=== PATIENT | male | born 1970 | race Caucasian/White ===

== ENCOUNTER 2017-11-03 16:26 | Inpatient (IN) ==
[2017-11-03] MEDS ORDERED: 0.9 % Sodium Chloride 1,000 ML IVC ONE (17:28)
[2017-11-03] MEDS ORDERED: Isovue-370 500 ML INFUS..BTL IV ONE (17:39)
--- NOTE | 2017-11-03 17:42 | Emergency Department Note ---
Disposition Clinical Impression: Foot ulcer due to secondary DM Disposition: Still a Patient Referrals: Fausto Tomlinson, [facility] [Primary Care Provider] - [facility] [Other] Wound/Laceration HPI - General Chief Complaint: ED Wound/Laceration Stated Complaint: "R foot cut possibly infected" Time Seen by Provider: 11/03/17 16:45 Source: patient Mode of arrival: ambulatory Limitations: no limitations Vital Signs Reviewed: Yes - Related Data Allergies Allergy/AdvReac Type Severity Reaction Status Date / Time No Known Allergies Allergy Verified 11/03/17 16:42 Review of Systems: Mr. Cedeno is a 46 yo poorly controled Diabetic male that presents after having cut the dorsum of his foot 10 days ago on a unknown source with poor care of the cut since that time. He now presents with difficulty walking and a erythemitous foot. Additionally, he admits to some calf and thigh tenderness. Constitutional: Denies: fever, weakness Cardiovascular: Denies: chest pain, palpitations, syncope Respiratory: Denies: cough, dyspnea Gastrointestinal: Denies: abdominal pain, nausea, vomiting Genitourinary: Denies: dysuria, frequency, hematuria Musculoskeletal: Reports: as per HPI Neurological: Denies: headache, weakness, numbness Past Medical History - Past Medical History Medical history: Reports: diabetes, hyperlipidemia, hypertension Psychiatric history: Reports: no psych history - Social History Smoking Status: Never smoker Smokeless Tobacco Status: No Alcohol use: Reports: rarely Drug use: Reports: none Physical Exam - General Limitations: no limitations General appearance: alert, in no apparent distress Course Vital Signs Temperature 98.6 F 11/03/17 16:39 Pulse Rate 104 11/03/17 16:39 Respiratory Rate 18 11/03/17 16:39 Blood Pressure 158/99 11/03/17 16:39 O2 Sat by Pulse Oximetry 96 11/03/17 16:39 Temperature 98.6 F 11/03/17 16:58 Pulse Rate 99 11/03/17 16:58 Respiratory Rate 18 11/03/17 16:58 Blood Pressure 146/94 11/03/17 16:58 O2 Sat by Pulse Oximetry 98 11/03/17 16:58 Oxygen Delivery Oxygen Delivery Room Air
--- NOTE | 2017-11-03 17:47 | Emergency Department Note ---
Disposition Clinical Impression: Foot ulcer due to secondary DM Cellulitis Qualifiers: Site of cellulitis: extremity Site of cellulitis of extremity: lower extremity Laterality: right Qualified Code(s): L03.115 - Cellulitis of right lower limb Disposition: Admitted As Inpatient Condition: Good Referrals: [facility] [Other] Fausto Tomlinson CNP [Primary Care Provider] - Forms: ED Satisfaction Letter Wound/Laceration HPI - General Chief Complaint: ED Wound/Laceration Stated Complaint: "R foot cut possibly infected" Time Seen by Provider: 11/03/17 16:45 Source: patient Mode of arrival: private vehicle Limitations: no limitations Nursing Notes Reviewed: Yes Vital Signs Reviewed: Yes - History of Present Illness HPI Narrative: I have re-performed and reviewed the history documented by the medical student, and I confirm its accuracy except as noted below 46-year-old male with diabetes presenting with 10 days of a right foot ulceration. Worsening over the last 36 hours. Increasing redness to the foot. Denies any fevers nausea vomiting diarrhea chills. No prior history of diabetic foot ulcerations. Has had some drainage from the site. No history of DVT. No other complaints. Onset (ago): day(s) Extremity Location: Right: foot Mechanism: other Pain Severity: mild - Related Data Allergies Allergy/AdvReac Type Severity Reaction Status Date / Time No Known Allergies Allergy Verified 11/03/17 16:42 All systems ED: reviewed and negative except as stated. Constitutional: Denies: fever, chills, weakness Gastrointestinal: Denies: nausea, vomiting Integumentary: Reports: abrasion Past Medical History - Past Medical History Attestation: Yes The following information was validated with the patient. Source: patient Medical history: Reports: diabetes, hyperlipidemia, hypertension Psychiatric history: Reports: no psych history - Social History Smoking Status: Never smoker Smokeless Tobacco Status: No Alcohol use: Reports: rarely Drug use: Reports: none Physical Exam - General Limitations: no limitations General appearance: alert, in no apparent distress - Head Head exam: atraumatic, normocephalic - Eye Eye exam: Present: normal appearance - ENT ENT exam: normal exam - Neck Neck exam: Present: normal inspection - Chest Chest inspection: Present: normal inspection, symmetric chest wall rise - Respiratory Respiratory exam: Present: normal lung sounds bilaterally - Cardiovascular Cardiovascular exam: Present: normal rhythm, tachycardia, normal heart sounds - Abdominal Exam Abdominal exam: Present: soft, Non-Tender. Absent: tenderness, distention, rigidity - Extremities Exam Extremities exam: Present: normal inspection, full ROM - Expanded Upper Extremity Exam Shoulder exam: Present: normal inspection, full ROM Arm exam: Present: normal inspection, full ROM Elbow exam: Present: normal inspection, full ROM Forearm/Wrist exam: Present: normal inspection, full ROM Hand exam: Present: normal inspection, full ROM - Expanded Lower Extremity Exam Hip/Pelvis exam: Present: normal inspection, full ROM Upper leg exam: Present: normal inspection, full ROM Knee exam: Present: normal inspection, full ROM Lower leg exam: Present: normal inspection, full ROM, tenderness (Right calf mild tenderness. No crepitus, swelling, erythema up the leg.) Ankle exam: Present: normal inspection, full ROM Foot/toe exam: Present: normal inspection, full ROM, tenderness ( Tenderness to the dorsum and medial aspect of the right foot. There is overlying erythema of the plantar surface as well as the dorsum. He has a roughly 2 x 4 cm area of ulceration at the base of the fourth toe approximately 1 cm deep and 1 cm tunneling in all directions. ) - Skin Skin exam: Present: warm, dry Course Course Narrative: Patient seen and examined. Vital signs reviewed. Plan for CT imaging of the foot, labs, IV fluids. Likely admission for IV antibiotics. - Reevaluation(s) Reevaluation #1: Discussed findings with the patient. Agreeable with plan. - Consultations Consultation #1: I spoke with the on-call dental assistant Dr. Hoover. Discussed the patient's history , exam as well as labs and interventions. Cultures were obtained. Patient to start on vancomycin. Plan to see the patient in the morning. Request a 3 view x-ray of the foot. Vital Signs Temperature 98.6 F 11/03/17 16:39 Pulse Rate 104 11/03/17 16:39 Respiratory Rate 18 11/03/17 16:39 Blood Pressure 158/99 11/03/17 16:39 O2 Sat by Pulse Oximetry 96 11/03/17 16:39 Temperature 98.6 F 11/03/17 16:58 Pulse Rate 102 11/03/17 18:00 Respiratory Rate 18 11/03/17 18:00 Blood Pressure 127/83 11/03/17 18:00 O2 Sat by Pulse Oximetry 96 11/03/17 18:00 Oxygen Delivery Oxygen Delivery Room Air Wound/Laceration - [facility] Narrative Medical decision making narrative: 46-year-old male presenting with an ulceration to his foot for 10 days. Cellulitis of the right foot as well. Hemodynamically stable. Leukocytosis of 16. Patient was discussed with podiatry. CT imaging with ulceration and soft tissue swelling. Vancomycin for antibiotic choice. Admitted to the hospitalist service. - Lab Data Lab results reviewed: Yes I reviewed the patient's lab results. Result diagrams: 11/03/17 17:53 11/03/17 17:39 Lab Results 11/03/17 11/03/17 11/03/17 Range/Units 17:39 17:53 17:53 WBC 15.8 H (4.3-11.1) K/mcL RBC 5.40 (4.19-5.50) M/mcL Hgb 16.2 (12.9-16.9) g/dL Hct 46.5 (37.5-50.1) % MCV 86.1 (83.0-100.0) fL MCH 30.0 (28.0-33.3) pg MCHC 34.8 (31.6-35.5) g/dL RDW 13.0 (11.5-14.5) % Plt Count 217 (140-400) K/mcL MPV 8.3 L (9.4-12.4) fL Immature Gran % 0.6 (0-4) % Seg Neutrophils % 79.5 % Lymphocytes % 9.2 % Monocytes % 10.1 % Eosinophils % 0.3 % Basophils % 0.3 % Neutrophils # 12.6 H (1.6-8.9) K/mcL Lymphocytes # 1.5 (0.6-4.6) K/mcL Monocytes # 1.6 H (0.0-1.3) K/mcL Eosinophils # 0.0 (0.0-0.6) K/mcL Basophils # 0.0 (0.0-0.2) K/mcL ESR 46 H (0-10) mm/hr Sodium 133 L (136-145) mEq/L Potassium 4.5 (3.5-5.1) mEq/L Chloride 97 L (98-107) mEq/L Carbon Dioxide 27 (23-29) mEq/L BUN 18 (6-20) mg/dL Creatinine 0.97 (0.70-1.30) mg/dL Est GFR ( Amer) > 60 (> 60) Est GFR (Non-Af Amer) > 60 (> 60) BUN/Creatinine Ratio 19 (6-26) Glucose 216 H (70-105) mg/dL Calculated Osmolality 284 (280-300) Lactic Acid (0.5-2.2) mmol/L Calcium 9.4 (8.6-10.3) mg/dL C-Reactive Protein (Less than 10) mg/L 11/03/17 11/03/17 Range/Units 17:53 17:53 WBC (4.3-11.1) K/mcL RBC (4.19-5.50) M/mcL Hgb (12.9-16.9) g/dL Hct (37.5-50.1) % MCV (83.0-100.0) fL MCH (28.0-33.3) pg MCHC (31.6-35.5) g/dL RDW (11.5-14.5) % Plt Count (140-400) K/mcL MPV (9.4-12.4) fL Immature Gran % (0-4) % Seg Neutrophils % % Lymphocytes % % Monocytes % % Eosinophils % % Basophils % % Neutrophils # (1.6-8.9) K/mcL Lymphocytes # (0.6-4.6) K/mcL Monocytes # (0.0-1.3) K/mcL Eosinophils # (0.0-0.6) K/mcL Basophils # (0.0-0.2) K/mcL ESR (0-10) mm/hr Sodium (136-145) mEq/L Potassium (3.5-5.1) mEq/L Chloride (98-107) mEq/L Carbon Dioxide (23-29) mEq/L BUN (6-20) mg/dL Creatinine (0.70-1.30) mg/dL Est GFR ( Amer) (> 60) Est GFR (Non-Af Amer) (> 60) BUN/Creatinine Ratio (6-26) Glucose (70-105) mg/dL Calculated Osmolality (280-300) Lactic Acid 1.2 (0.5-2.2) mmol/L Calcium (8.6-10.3) mg/dL C-Reactive Protein 57 H (Less than 10) mg/L - Radiology Data Radiology results reviewed: Yes I reviewed the patient's radiology results. Lower Extremity CT 11/03/17 17:39 IMPRESSION: 1. Ulceration along the plantar foot with adjacent soft tissue edema and hypoattenuation of the tissue which may reflect phlegmon or devitalized tissue. No well-circumscribed rim enhancing fluid collection identified. 2. No CT evidence for osteomyelitis. 3. Diffuse soft tissue edema. Correlate clinically for cellulitis. RECOMMENDATIONS: MRI of the forefoot could be obtained for further evaluation as clinically indicated. D/ / Pineda Hinson MD / Pineda Hinson MD Interpreting Provider: Pineda Hinson MD Kirill - Kirill Situation: Demographics, MOA Background: Presenting Complaint, Relevant PMH, Meds, & Allergies Assessment: Vital Signs, Course and respsone to treatment, Exam Concerns, Patient/Family Expectation, Pertinant Lab Results Recommendation: Barrier(s) to disposition, Recommendation based on pending studies, treatments, or consults Kirill Report Given to: Dr. Easton Roy [facility] Time: 20:32
[2017-11-03 18:13] LABS: Basophils % 0.3 %; Eosinophils % 0.3 %; Hematocrit 46.5 % (37.5-50.1); Hemoglobin 16.2 g/dL (12.9-16.9); Immature Granulocytes % 0.6 % (0-4); Lymphocytes # 1.5 K/mcL (0.6-4.6); Lymphocytes % 9.2 %; Mean Corpuscular HGB Conc 34.8 g/dL (31.6-35.5); Mean Corpuscular Volume 86.1 fL (83.0-100.0); Mean Platelet Volume 8.3 fL (9.4-12.4); Monocytes # 1.6 K/mcL (0.0-1.3); Monocytes % 10.1 %; Neutrophils # 12.6 K/mcL (1.6-8.9); Platelet Count 217 K/mcL (140-400); Segmented Neutrophils % 79.5 %
--- NOTE | 2017-11-03 18:34 | Emergency Department Note ---
Disposition Clinical Impression: Foot ulcer due to secondary DM Disposition: Admitted As Inpatient Referrals: [facility] [Other] Fausto Tomlinson, [facility] [Primary Care Provider] - Forms: ED Satisfaction Letter General Adult HPI - General Chief complaint: ED Wound/Laceration Stated complaint: "R foot cut possibly infected" Time Seen by Provider: 11/03/17 16:45 Source: patient Mode of arrival: private vehicle Limitations: no limitations - History of Present Illness Pain Scale: 4 - Related Data Allergies Allergy/AdvReac Type Severity Reaction Status Date / Time No Known Allergies Allergy Verified 11/03/17 16:42 Constitutional: Denies: fever, chills, weakness Cardiovascular: Denies: chest pain, palpitations, syncope Respiratory: Denies: cough, dyspnea Gastrointestinal: Denies: nausea, vomiting Genitourinary: Denies: dysuria, frequency, hematuria Musculoskeletal: Reports: as per HPI Integumentary: Reports: abrasion Neurological: Denies: headache, weakness, numbness Past Medical History - Past Medical History Medical history: Reports: diabetes, hyperlipidemia, hypertension Psychiatric history: Reports: no psych history - Social History Smoking Status: Never smoker Smokeless Tobacco Status: No Alcohol use: Reports: rarely Drug use: Reports: none Physical Exam - General Limitations: no limitations General appearance: alert, in no apparent distress Course Vital Signs Temperature 98.6 F 11/03/17 16:39 Pulse Rate 104 11/03/17 16:39 Respiratory Rate 18 11/03/17 16:39 Blood Pressure 158/99 11/03/17 16:39 O2 Sat by Pulse Oximetry 96 11/03/17 16:39 Temperature 98.6 F 11/03/17 16:58 Pulse Rate 102 11/03/17 18:00 Respiratory Rate 18 11/03/17 18:00 Blood Pressure 127/83 11/03/17 18:00 O2 Sat by Pulse Oximetry 96 11/03/17 18:00 Oxygen Delivery Oxygen Delivery Room Air Medical Decision Making - Lab Data Result diagrams: 11/03/17 17:53 Lab Results 11/03/17 11/03/17 11/03/17 Range/Units 17:53 17:53 17:53 WBC 15.8 H (4.3-11.1) K/mcL RBC 5.40 (4.19-5.50) M/mcL Hgb 16.2 (12.9-16.9) g/dL Hct 46.5 (37.5-50.1) % MCV 86.1 (83.0-100.0) fL MCH 30.0 (28.0-33.3) pg MCHC 34.8 (31.6-35.5) g/dL RDW 13.0 (11.5-14.5) % Plt Count 217 (140-400) K/mcL MPV 8.3 L (9.4-12.4) fL Immature Gran % 0.6 (0-4) % Seg Neutrophils % 79.5 % Lymphocytes % 9.2 % Monocytes % 10.1 % Eosinophils % 0.3 % Basophils % 0.3 % Neutrophils # 12.6 H (1.6-8.9) K/mcL Lymphocytes # 1.5 (0.6-4.6) K/mcL Monocytes # 1.6 H (0.0-1.3) K/mcL Eosinophils # 0.0 (0.0-0.6) K/mcL Basophils # 0.0 (0.0-0.2) K/mcL ESR 46 H (0-10) mm/hr Lactic Acid 1.2 (0.5-2.2) mmol/L Attestation Statement - Attestation Attestation: I examined this patient and my medical decision-making was reviewed with the Resident Physician. I agree with the documented findings, disposition and treatment plan as described except to the extent set forth below. 46 year old male presents to the ED with complaints of right foot pain and is a controlled diabetic and states that he has been having decrasd feeling ot his right foot and played basketball yesterday and noticed increased swelling and tenderenss with erythematous changes to the bottom of his right foot and into the top part of his foot. He is also tachycardic but afebrile. Concerns for osteomyeltisi or infected diabetic ulcer. WE will start IVF, and obtain CT LLE and then admit to mdeicine
[2017-11-03 18:37] LABS: BUN/Creatinine Ratio 19 (6-26); Blood Urea Nitrogen 18 mg/dL (6-20); Calcium 9.4 mg/dL (8.6-10.3); Carbon Dioxide 27 mEq/L (23-29); Chloride 97 mEq/L (98-107); Glucose 216 mg/dL (70-105); Osmolality,Calculated 284 (280-300); Potassium 4.5 mEq/L (3.5-5.1); Sodium 133 mEq/L (136-145); eGFR For Non-African Americans > 60 (> 60)
[2017-11-03] MEDS ORDERED: *HR* OxyCODONE/APAP 5/325 TABLET PO ONE (20:31)
[2017-11-03] MEDS ORDERED: Dextrose Gel 15 GM/37.5 ML TUBE PO PRN ×2 (20:38)
--- NOTE | 2017-11-03 20:51 | Internal Med History&Physical ---
Date of Encounter: 11/03/17 Time of Encounter: 20:48 Internal Medicine - H&P: HPI Chief complaint: foot wound Admitted From: Home Plans for Post Hospital Care: Home History of present illness: Mr. Cedeno is a 46 year old obese man with diabetes complicated by neuropathy and hypertension who presents today complaining of a right foot plantar ulcer with pedal swelling, erythema ad pain. As per patient and his , an ulcer was noted on the plantar surface below digits 4 and 5 about 10 days ago after seeing blood on the floor however he did not feel any puncture wounds and was unaware of its development. The lesion continued to produce discharge and 3 days ago after playing some basketball, the foot started swelling and become more tender. Today he woke up and noticed the swelling had progressed up into his leg, feeling a tightness and numbness. He has not been febrile or had chills. On arrival here he was seen to have a WBC of 15. Vitals within normal limits. CT scan was done and confirmed the ulceration along the plantar foot with adjacent soft tissue edema and hypoattenuation of the tissue which may reflect phlegmon or devitalized tissue. No well-circumscribed rim enhancing fluid collection identified. No CT evidence for osteomyelitis. Diffuse soft tissue edema. Podiatry was consulted and will be seen. Blood cultures and culture swab from the drainage were obtained and was given 1 dose of vancomycin. On my assessment the patient was laying comfortably in bed in no acute distress. Info provided by the is that he was diagnosed with diabetes over 10 years ago, is on metformin, empagliflozin and dulaglutide. He states that he was not seen a physician in 2 years. He does state he has minimal sensation in the plantar aspect of his feet and frequently walks around barefoot. 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, has a pankaj) - Social History Smoking Status: Never smoker Smokeless Tobacco Status: No Alcohol use: rarely Drug use: none Internal Medicine - H&P: Meds Amitriptyline [Elavil] 25 mg PO DAILY 11/03/17 [History] Dulaglutide [Trulicity] 0.75 mg SQ QWEEK 11/03/17 [History] Empagliflozin [Jardiance] 10 mg PO DAILY 11/03/17 [History] Lisinopril [Zestril] 10 mg PO DAILY 11/03/17 [History] Simvastatin [Zocor] 10 mg PO DAILY 11/03/17 [History] metFORMIN [Glucophage] 1,000 mg PO BIDWM 11/03/17 [History] 3 Allergy/AdvReac Type Severity Reaction Status Date / Time No Known Allergies Allergy Verified 11/03/17 16:42 All Systems PM: A 10-system review of systems was performed and is negative for pertinent findings except as documented above in the HPI. - Constitutional Vitals: Temp Pulse Resp BP Pulse Ox 98.6 F 93 18 152/90 96 11/03/17 16:58 11/03/17 20:39 11/03/17 20:39 11/03/17 20:39 11/03/17 20:39 Exam: Vitals: Reviewed General: Obese white man, NAD Skin: warm and supple HEENT: Moist mucous membranes. No conjunctivae pallor. Neck: No lymphadenopathy. No JVD. No carotid bruits. No palpable thyroid. Chest: Normal thoracic expansion. Normal breath sounds. Clear to auscultation. Heart: Normal S1 & S2; rhythmic. No rubs or murmurs. Abdomen: Non-distended, soft and non-tender to palpation. Extremities: Right calf circumferentially larger than the left with some pain on deep palpation in the inferior third. Right foot notably swollen and erythematous. Plantar surface depictive of a 2cm wide ulceration with hard hyperkeratotic borders with 1cm tunneling and draining yellowish fluid. No sensation surrounding. Neurological: Awake, alert and oriented to person, place and time. No focal deficits. Psych: Affect appropriate. Internal Med - H&P Results - Labs CBC & Chem 7: 11/03/17 17:53 11/03/17 17:39 - Assessment and plan (1) Diabetic foot ulcer associated with diabetes mellitus due to underlying condition Current Visit: Yes Status: Acute Assessment and plan: Associated to neuropathic state. There is also evidence of onychomycosis with interphalangeal skin breakdown which are associated factors that act as ports of entry. -Given a likely polymicrobial etiology, will add on piptazo to vancomycin empirically for now pending culture results. -Podiatry consult requested. -Will need close outpatient monitoring and wound care follow up. Qualifiers: Diabetic foot ulcer location: midfoot Laterality: right Non-pressure ulcer stage: with other severity Qualified Code(s): E08.621 - Diabetes mellitus due to underlying condition with foot ulcer; L97.418 - Non-pressure chronic ulcer of right heel and midfoot with other specified severity (2) Sepsis affecting skin Current Visit: Yes Status: Acute Assessment and plan: Evidenced by leukocytosis and tachycardia. Found to have skin/soft tissue infection. Lactate wnl. Will place on IVF, monitor wbc and temperature. Abx as above. (3) Diabetes mellitus Current Visit: Yes Status: Acute Assessment and plan: Will place on insulin sliding scale for now. Check state on control with A1C Diabetic education. Check lipid panel. Qualifiers: Diabetes mellitus type: type 2 Diabetes mellitus exterminator insulin use: without usp use Diabetes mellitus complication status: with skin complications Diabetes mellitus complication detail: with foot ulcer Qualified Code(s): E11.621 - Type 2 diabetes mellitus with foot ulcer; L97.509 - Non-pressure chronic ulcer of other part of unspecified foot with unspecified severity (4) Hypertension Current Visit: Yes Status: Chronic Assessment and plan: Uncontrolled. Will place on ACEI and titrate as needed. Qualifiers: Hypertension type: essential hypertension Qualified Code(s): I10 - Essential (primary) hypertension (5) Obesity (BMI 30-39.9) Current Visit: Yes Status: Chronic Assessment and plan: Will benefit from nutrition consultation, diet and exercise advised. (6) DVT prophylaxis Current Visit: Yes Status: Acute Assessment and plan: SubQ heparin ordered. - Time Spent With Patient Total time spent is greater than 50% in coordination of care (as documented) at patient's floor/unit and/or counseling patient: Greater than 35 minutes
[2017-11-03] MEDS ORDERED: Ibuprofen 600 MG TABLET PO PRN (20:58)
[2017-11-03] MEDS: *HR* Heparin 5,000 UNIT/ML VIAL SQ SCH (21:58)
[2017-11-03] MEDS: Insulin LISPRO 300 UNITS/3 ML VIAL SQ SCH (21:59)
[2017-11-03] MEDS: 0.9 % Sodium Chloride 1,000 ML IVC SCH (21:59)
[2017-11-04] MEDS: Piperacillin/Tazobactam 3.375 GM in 0.9 % Sodium Chloride Mini Bag 100 ML IVPB SCH ×3 (00:19→16:22)
[2017-11-04 04:22] LABS: Basophils % 0.3 %; Eosinophils # 0.1 K/mcL (0.0-0.6); Hematocrit 40.8 % (37.5-50.1); Immature Granulocytes % 0.5 % (0-4); Lymphocytes % 17.3 %; Mean Corpuscular HGB Conc 34.1 g/dL (31.6-35.5); Mean Corpuscular Hemoglobin 29.6 pg (28.0-33.3); Mean Corpuscular Volume 86.8 fL (83.0-100.0); Mean Platelet Volume 8.3 fL (9.4-12.4); Monocytes # 1.6 K/mcL (0.0-1.3); Monocytes % 13.6 %; Neutrophils # 7.7 K/mcL (1.6-8.9); Platelet Count 177 K/mcL (140-400); Red Cell Distribution Width 12.9 % (11.5-14.5); Segmented Neutrophils % 67.3 %
[2017-11-04 04:27] LABS: Hemoglobin 13.9 g/dL (12.9-16.9)
[2017-11-04 04:41] LABS: Alanine Aminotransferase 13 Units/L (7-52); Albumin 3.5 g/dL (3.5-5.7); Albumin/Globulin Ratio 1.2 (1.1-2.2); Alkaline Phosphatase 75 Units/L (34-104); Aspartate Amino Transferase 10 Units/L (13-39); BUN/Creatinine Ratio 18 (6-26); Blood Urea Nitrogen 16 mg/dL (6-20); Calcium 8.1 mg/dL (8.6-10.3); Carbon Dioxide 27 mEq/L (23-29); Chloride 101 mEq/L (98-107); Chol/HDL Ratio 4.3 (0-4.9); Cholesterol 159 mg/dL (< 200); Glucose 202 mg/dL (70-105); HDL Cholesterol 37 mg/dL (40-59); LDL Cholesterol,Calculated 98 mg/dL (0-99); Osmolality,Calculated 285 (280-300); Sodium 134 mEq/L (136-145); Total Protein 6.5 g/dL (6.4-8.9); Triglycerides 121 mg/dL (< 150); eGFR For Non-African Americans > 60 (> 60)
[2017-11-04] MEDS: *HR* Heparin 5,000 UNIT/ML VIAL SQ SCH ×3 (06:23→21:25)
[2017-11-04] MEDS: 0.9 % Sodium Chloride 1,000 ML IVC SCH (06:23)
[2017-11-04] MEDS: Lisinopril 20 MG TABLET PO SCH (08:40)
[2017-11-04] MEDS: Insulin LISPRO 300 UNITS/3 ML VIAL SQ SCH ×4 (08:41→21:22)
[2017-11-04] MEDS ORDERED: Vancomycin 1,750 MG in 0.9 % Sodium Chloride 250 ML IVPB SCH (09:00)
[2017-11-04 09:48] LABS: Estimated Average Glucose 209 mg/dl; Hemoglobin A1C 8.9 %
--- NOTE | 2017-11-04 11:42 | Podiatry Consult Note ---
Date of Encounter: 11/04/17 Time of Encounter: 11:20 Assessment and Plan (1) Foot ulcer due to secondary DM Current visit: Yes Status: Acute encouraged glycemic control. discussed importance of controlling blood sugar for wound healing. (2) Cellulitis Current visit: Yes Status: Acute ESR and CRP reviewed. ESR in 50s. patient has dorsal foot erythema consistent with cellulitis. low likelihood of osteomyelitis and wound does not probe to bone. c/w IV antibiotics. trend wbc count. did respond to IV abx overnight wbc 15--->11 Qualifiers: Site of cellulitis: extremity Site of cellulitis of extremity: lower extremity Laterality: right Qualified Code(s): L03.115 - Cellulitis of right lower limb Code(s): L03.90 - Cellulitis, unspecified (3) Chronic ulcer of right foot with fat layer exposed Current visit: Yes Status: Acute I had a thorough review with the patient regarding his infection/condition, my findings, and recommendations for treatment. We discussed his x-ray and CT scan. excisional debridement of right foot wound performed into subctuaneous tissue removing fibrotic tissue and devitalized tissue from the wound wound culture obtained and sent obtain a current A1c mesalt ribbon packing twice daily, cleanse skin with hibiclens prior to application of mesalt, apply sterile dressing 4x4 gauze, kerlix and the MEG wrap twice daily. will require diabetic boot for off-loading, will get for patient tomorrow. History of Present Illness HPI: Mr. Cedeno is a 46 year old diabetic male with neuropathy comes in with right foot wound he says has been present for 11-12 days. He did notice drainage come out of it. He denies stepping on anything but says he would not be able to feel it if he did. He says I did this to myself, I stayed active despite knowing this was there and played basketball on Saturday. He says the redness on the foot worsened as did the swelling and pain which brought him to the hospital. He says he works at the [employer] in [place] and is a very active alberto. He says his A1c was previously in the 7s but he says he knows it is up because he has not been as controlled recently. Podiatry consulted for evaluation. 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, has a pankaj) - Social History Smoking Status: Never smoker Smokeless Tobacco Status: No Alcohol use: rarely Drug use: none Medications and Allergies Amitriptyline [Elavil] 25 mg PO DAILY 11/03/17 [History] Dulaglutide [Trulicity] 0.75 mg SQ QWEEK 11/03/17 [History] Empagliflozin [Jardiance] 10 mg PO DAILY 11/03/17 [History] Lisinopril [Zestril] 10 mg PO DAILY 11/03/17 [History] Simvastatin [Zocor] 10 mg PO DAILY 11/03/17 [History] metFORMIN [Glucophage] 1,000 mg PO BIDWM 11/03/17 [History] 3 Allergy/AdvReac Type Severity Reaction Status Date / Time No Known Allergies Allergy Verified 11/03/17 16:42 All Systems Reviewed: The remainder of the systems were reviewed and are negative - Constitutional Constitutional: no fever(s) - Cardiovascular Cardiovascular: no chest pain, no dyspnea - Respiratory Respiratory: no cough, no dyspnea - Musculoskeletal Musculoskeletal: numbness Physical Exam - Constitutional Vitals: Temp Pulse Resp BP Pulse Ox 98.6 F 90 16 163/106 93 11/04/17 10:58 11/04/17 10:58 11/04/17 10:58 11/04/17 10:58 11/04/17 10:58 General appearance: cooperative, no acute distress - Cardiovascular Cardiovascular exam: Present: +S1, +S2 - Extremities Exam Extremities exam: Absent: calf tenderness - Ankle & Foot Exam: Well-developed and nourished male in no acute distress Capillary refill time less than 3 seconds 5 digits right foot. Right foot is warm to touch. There is moderate edema of the right foot in the forefoot. Plantar ulceration approximately 2 cm x 1.5 cm and probes approximately 1 cm. It does not probe to bone. There is no purulence expressed. There is serosanguineous drainage with devitalized tissue present at the base of the wound. Cellulitis dorsal aspect of foot. Absent protective sensation. There is pain with palpation of the ulceration site. No pain with MTP midfoot ST JR ankle range of motion. Results - Labs Result Diagrams: 11/04/17 04:09 11/04/17 04:09 Labs: Abnormal lab results WBC 11.5 K/mcL (4.3-11.1) H 11/04/17 04:09 MPV 8.3 fL (9.4-12.4) L 11/04/17 04:09 Monocytes # 1.6 K/mcL (0.0-1.3) H 11/04/17 04:09 ESR 46 mm/hr (0-10) H 11/03/17 17:53 Sodium 134 mEq/L (136-145) L 11/04/17 04:09 Glucose 202 mg/dL (70-105) H 11/04/17 04:09 POC Glucose 263 mg/dL (70-99) H 11/03/17 21:32 Hemoglobin A1c 8.9 % (-5.6) H 11/04/17 04:09 Calcium 8.1 mg/dL (8.6-10.3) L 11/04/17 04:09 AST 10 Units/L (13-39) L 11/04/17 04:09 C-Reactive Protein 57 mg/L (Less than 10) H 11/03/17 17:53 HDL Cholesterol 37 mg/dL (40-59) L 11/04/17 04:09 H & H 11/04/17 Range/Units 04:09 Hgb 13.9 D (12.9-16.9) g/dL Hct 40.8 (37.5-50.1) % All other labs normal. - Diagnostic results Ankle/Foot CT: other (no abscess, no osteomyelitis) Consult Discharge Plan - Plan Referrals: Fausto Tomlinson CNP [Primary Care Provider] - [facility] [Other]
--- NOTE | 2017-11-04 12:30 | Internal Med Progress Note ---
Hospitalist Progress Note - Encounter Date of Encounter: 11/04/17 Time of Encounter: 12:28 - Subjective Interval History: Patient was seen and examined at bedside Denies any fever chills nausea vomiting diarrhea No overnight events Tolerated by mouth diet, pain is controlled - Exam Vitals: Temp Pulse Resp BP Pulse Ox 98.6 F 90 16 170/100 93 11/04/17 10:58 11/04/17 10:58 11/04/17 10:58 11/04/17 12:25 11/04/17 10:58 Exam: General: Patient is alert, oriented, no acute distress, obese Head: atraumatic, normocephalic, Eye: normal appearance, PERRL, no scleral icterus, no conjunctival injection ENT: mucous membranes moist, normal external ear exam Neck: normal inspection, trachea midline, full ROM, no carotid bruits Chest: normal inspection, symmetric chest rise Respiratory: Good respiratory effort. Bilateral breath sounds are clear without wheezing, crackles, or rhonchi. Cardiovascular: Regular rate and rhythm. s1 and s2 No clicks, rubs, gallops, or murmors. Abdomen: Bowel sounds present normoactive x-4 quadrants. Abdomen is soft, nondistended. no Epigastric tenderness. No guarding or rebound. No organomegaly noted, obese musculoskeletal: Spontaneously moving all extremities. no edema, no calf tenderness DP pulses intact Skin: warm, dry, intact. Has right dorsal foot erythema and swelling, plantar ulcer of the right foot, the ulcer is only 1 x 1 cm, subcutaneous tissues visualized no bone seen surrounding tissue is fibrotic. No pus or discharge Neuro: Alert and oriented x4. Sensation light touch intact. Cranial nerves 2- 12 is intact. Not aphasic, gait is steady, rapid hand movements intact, finger- to-nose intact, Psych: Patient's affect is normal - Assessment and Plan (1) Diabetic foot ulcer associated with diabetes mellitus due to underlying condition Current Visit: Yes Status: Acute Assessment and Plan: Associated to neuropathic state. ESR 46 CRP 57 There is also evidence of onychomycosis with interphalangeal skin breakdown which are associated factors that act as ports of entry. On IV Zosyn and vancomycin since 11/03 Podiatry consulted s/p debridement 11/04 wound cx sent by podiatry 11/04 bcx sent 11/03 mesalt ribbon packing twice daily, cleanse skin with hibiclens prior to application of mesalt, apply sterile dressing 4x4 gauze, kerlix and the MEG wrap twice daily wound care consult (2) Sepsis affecting skin Current Visit: Yes Status: Acute Assessment and Plan: Evidenced by leukocytosis and tachycardia. secondary to above Lactate wnl. management as per above Now resolved (3) Diabetes mellitus Current Visit: Yes Status: Acute Assessment and Plan: Will place on insulin sliding scale for now. he was counseled on nutrition and importance of compliance to medications uncontrolled A1c 8.9 Diabetic education. (4) Hypertension Current Visit: Yes Status: Chronic Assessment and Plan: Uncontrolled. started on lisinopril 20 mg IVF discontinued will continue to follow BP and titrate medications (5) Obesity (BMI 30-39.9) Current Visit: Yes Status: Chronic Assessment and Plan: nutrition consultation diet and exercise advised. (6) DVT prophylaxis Current Visit: Yes Status: Acute Assessment and Plan: SubQ heparin - Time Spent with Patient Total time spent is greater than 50% in coordination of care (as documented) at patient's floor/unit and/or counseling patient: Internal Medicine: Result - Labs CBC & Chem 7: 11/04/17 04:09 11/04/17 04:09 Labs: Short CBC 11/04/17 Range/Units 04:09 WBC 11.5 H (4.3-11.1) K/mcL Hgb 13.9 D (12.9-16.9) g/dL Hct 40.8 (37.5-50.1) % Plt Count 177 (140-400) K/mcL Neutrophils # 7.7 (1.6-8.9) K/mcL BMP 11/04/17 04:09 Sodium 134 L Potassium 4.0 Chloride 101 Carbon Dioxide 27 BUN 16 Creatinine 0.91 Glucose 202 H Calcium 8.1 L Liver Function 11/04/17 Range/Units 04:09 Total Bilirubin 1.0 (0.3-1.0) mg/dL AST 10 L (13-39) Units/L ALT 13 (7-52) Units/L Alkaline Phosphatase 75 (34-104) Units/L Albumin 3.5 (3.5-5.7) g/dL Consult Discharge Plan - Plan Referrals: [facility] [Other] Fausto Tomlinson, FINANCIAL PLANNING ANALYST [Primary Care Provider] - (1) Diabetic foot ulcer associated with diabetes mellitus due to underlying condition Qualifiers: Diabetic foot ulcer location: midfoot Laterality: right Non-pressure ulcer stage: with other severity Qualified Code(s): E08.621 - Diabetes mellitus due to underlying condition with foot ulcer; L97.418 - Non-pressure chronic ulcer of right heel and midfoot with other specified severity (3) Diabetes mellitus Qualifiers: Diabetes mellitus type: type 2 Diabetes mellitus fpc insulin use: without metrologist use Diabetes mellitus complication status: with skin complications Diabetes mellitus complication detail: with foot ulcer Qualified Code(s): E11.621 - Type 2 diabetes mellitus with foot ulcer; L97.509 - Non-pressure chronic ulcer of other part of unspecified foot with unspecified severity (4) Hypertension Qualifiers: Hypertension type: essential hypertension Qualified Code(s): I10 - Essential (primary) hypertension
[2017-11-04] MEDS ORDERED: amLODIPine 5 MG TABLET PO ONE (13:59)
[2017-11-04] MEDS: traMADol 50 MG TABLET PO PRN (14:13)
[2017-11-04] MEDS ORDERED: D5% in Water 1,000 ML IVC PRN (14:38)
[2017-11-04] MEDS ORDERED: *HR* Dextrose 50 % in Water (Syg) 50 ML SYRINGE IVP PRN (14:38)
[2017-11-04] MEDS: Insulin DETEMIR 100 UNIT/ML X5UNITS SQ SCH (21:20)
[2017-11-04] MEDS: *HR* HYDROcodone/Acet 5/325 mg TABLET PO PRN (21:25)
[2017-11-05] MEDS: Piperacillin/Tazobactam 3.375 GM in 0.9 % Sodium Chloride Mini Bag 100 ML IVPB SCH ×4 (00:15→23:45)
[2017-11-05 06:13] LABS: Hematocrit 38.3 % (37.5-50.1); Hemoglobin 13.3 g/dL (12.9-16.9); Mean Corpuscular HGB Conc 34.7 g/dL (31.6-35.5); Mean Corpuscular Volume 86.3 fL (83.0-100.0); Mean Platelet Volume 8.4 fL (9.4-12.4); Platelet Count 181 K/mcL (140-400); Red Blood Count 4.44 M/mcL (4.19-5.50); Red Cell Distribution Width 12.7 % (11.5-14.5)
[2017-11-05 06:37] LABS: BUN/Creatinine Ratio 16 (6-26); Blood Urea Nitrogen 12 mg/dL (6-20); Calcium 7.9 mg/dL (8.6-10.3); Carbon Dioxide 24 mEq/L (23-29); Chloride 99 mEq/L (98-107); Glucose 175 mg/dL (70-105); Osmolality,Calculated 280 (280-300); Potassium 3.8 mEq/L (3.5-5.1); Sodium 133 mEq/L (136-145); eGFR For Non-African Americans > 60 (> 60)
[2017-11-05] MEDS: *HR* Heparin 5,000 UNIT/ML VIAL SQ SCH ×3 (07:58→20:57)
[2017-11-05] MEDS: Insulin LISPRO 300 UNITS/3 ML VIAL SQ SCH ×4 (08:45→20:55)
[2017-11-05] MEDS: Lisinopril 20 MG TABLET PO SCH (08:45)
[2017-11-05] MEDS: *HR* HYDROcodone/Acet 5/325 mg TABLET PO PRN ×3 (10:17→23:47)
--- NOTE | 2017-11-05 10:38 | Internal Med Progress Note ---
Hospitalist Progress Note - Encounter Date of Encounter: 11/05/17 Time of Encounter: 10:34 - Subjective Interval History: Patient was seen and examined at bedside Denies any fever chills nausea vomiting diarrhea No overnight events Tolerated by mouth diet, pain is controlled - Exam Vitals: Temp Pulse Resp BP Pulse Ox 99.2 F 88 15 144/90 94 11/05/17 10:28 11/05/17 10:28 11/05/17 10:28 11/05/17 10:28 11/05/17 10:28 Exam: General: Patient is alert, oriented, no acute distress, obese Head: atraumatic, normocephalic, Eye: normal appearance, PERRL, no scleral icterus, no conjunctival injection ENT: mucous membranes moist, normal external ear exam Neck: normal inspection, trachea midline, full ROM, no carotid bruits Chest: normal inspection, symmetric chest rise Respiratory: Good respiratory effort. Bilateral breath sounds are clear without wheezing, crackles, or rhonchi. Cardiovascular: Regular rate and rhythm. s1 and s2 No clicks, rubs, gallops, or murmors. Abdomen: Bowel sounds present normoactive x-4 quadrants. Abdomen is soft, nondistended. no Epigastric tenderness. No guarding or rebound. No organomegaly noted, obese musculoskeletal: Spontaneously moving all extremities. no edema, no calf tenderness DP pulses intact Skin: warm, dry, intact. swelling of the right LE has improved, RLE wrapped in dressing whicis clean Neuro: Alert and oriented x4. Sensation light touch intact. Cranial nerves 2- 12 is intact. Not aphasic, gait is steady, rapid hand movements intact, finger- to-nose intact, Psych: Patient's affect is normal - Assessment and Plan (1) Diabetic foot ulcer associated with diabetes mellitus due to underlying condition Current Visit: Yes Status: Acute Assessment and Plan: Associated to neuropathic state. ESR 46 CRP 57 There is also evidence of onychomycosis with interphalangeal skin breakdown which are associated factors that act as ports of entry. On IV Zosyn and vancomycin since 11/03- vancomycin discontinued as wound cx are growing gram negatives Podiatry consulted s/p debridement 11/04 wound cx sent by podiatry 11/04 - growing gram negative rods x2 -will follow sensitivities bcx sent 11/03- prelim negative mesalt ribbon packing twice daily, cleanse skin with hibiclens prior to application of mesalt, apply sterile dressing 4x4 gauze, kerlix and the MEG wrap twice daily wound care consult PT consult SW consult (2) Sepsis affecting skin Current Visit: Yes Status: Resolved Assessment and Plan: Evidenced by leukocytosis and tachycardia. secondary to above Lactate wnl. management as per above Now resolved (3) Diabetes mellitus Current Visit: Yes Status: Acute Assessment and Plan: insulin sliding scale levemir 10 mg QHS he was counseled on nutrition and importance of compliance to medications uncontrolled A1c 8.9 Diabetic education. (4) Hypertension Current Visit: Yes Status: Chronic Assessment and Plan: Uncontrolled. increased lisinopril to 30 mg Qday IVF discontinued will continue to follow BP and titrate medications (5) Obesity (BMI 30-39.9) Current Visit: Yes Status: Chronic Assessment and Plan: nutrition consultation diet and exercise advised. (6) DVT prophylaxis Current Visit: Yes Status: Acute Assessment and Plan: SubQ heparin - Time Spent with Patient Total time spent is greater than 50% in coordination of care (as documented) at patient's floor/unit and/or counseling patient: Internal Medicine: Result - Labs CBC & Chem 7: 11/05/17 05:44 11/05/17 05:44 Labs: Short CBC 11/05/17 Range/Units 05:44 WBC 10.7 (4.3-11.1) K/mcL Hgb 13.3 (12.9-16.9) g/dL Hct 38.3 (37.5-50.1) % Plt Count 181 (140-400) K/mcL BMP 11/05/17 05:44 Sodium 133 L Potassium 3.8 Chloride 99 Carbon Dioxide 24 BUN 12 Creatinine 0.77 Glucose 175 H Calcium 7.9 L Consult Discharge Plan - Plan Referrals: [facility] [Other] Fausto Tomlinson, [employer] CLERK [Primary Care Provider] - (1) Diabetic foot ulcer associated with diabetes mellitus due to underlying condition Qualifiers: Diabetic foot ulcer location: midfoot Laterality: right Non-pressure ulcer stage: with other severity Qualified Code(s): E08.621 - Diabetes mellitus due to underlying condition with foot ulcer; L97.418 - Non-pressure chronic ulcer of right heel and midfoot with other specified severity (3) Diabetes mellitus Qualifiers: Diabetes mellitus type: type 2 Diabetes mellitus fpc insulin use: without fpc use Diabetes mellitus complication status: with skin complications Diabetes mellitus complication detail: with foot ulcer Qualified Code(s): E11.621 - Type 2 diabetes mellitus with foot ulcer; L97.509 - Non-pressure chronic ulcer of other part of unspecified foot with unspecified severity (4) Hypertension Qualifiers: Hypertension type: essential hypertension Qualified Code(s): I10 - Essential (primary) hypertension
--- NOTE | 2017-11-05 13:22 | Podiatry Progress Note ---
Date of Encounter: 11/05/17 Time of Encounter: 12:00 - Assessment and Plan (1) Chronic ulcer of right foot with fat layer exposed Current Visit: Yes Status: Acute Diabetic foot ulcer with fat layer exposed without probe to bone with associated cellultis Plan: Assessed today at bedside WBC trending down- Culture showing GNR x2 at this time - await final results Clinically foot appears worse today- cellulitis margins were marked for monitoring per and erythema has extended proximally from markings. Erythema remains to dorsal aspect of foot not extending beyond ankle. Pitting edema remains. Will reassess tomorrow- if worse will consider formal debridement in OR. At this time continue to monitor, continue IV antibiotics - vancomycin and zosyn at this time and await results of culture Limited weight bearing Elevate Flushed with saline, mesalt packing, 4x4 and kerlix applied. MEG reapplied- instructed this was to compress foot to decrease edema. Verbalized understanding. A1c 8.9. Patient reports that he has not been controlling his glucose as he should. States it was 12.1 - states he did obtain decent control but then the last 3-4 months have been bad. Educated on strict glucose control to promote healing and limit further complications. (2) Diabetic foot ulcer associated with diabetes mellitus due to underlying condition Current Visit: Yes Status: Acute Qualifiers: Diabetic foot ulcer location: midfoot Laterality: right Non-pressure ulcer stage: with other severity Qualified Code(s): E08.621 - Diabetes mellitus due to underlying condition with foot ulcer; L97.418 - Non-pressure chronic ulcer of right heel and midfoot with other specified severity Subjective Interval history: Mr. Cedeno is a 46 year old diabetic male with neuropathy who came in with a right foot wound. Debridement was complete per - cultures were obtained and sent- patient was started on IV antibiotics. States he has minimal pain to his foot at this time. Patient has dressing intact however states he took the MEG off because his "foot was swelling and it was causing pressure to his foot" Patient denies any known fevers, chills, n/v or flu like symptoms. WBC has decreased to 10.7 today. GNR x2 noted to cultures- not finalized at this time. Objective - Vital Signs Vital Signs: Vital Signs Temp Pulse Resp BP Pulse Ox 11/05/17 10:28 99.2 F 88 15 144/90 94 11/05/17 05:26 99.1 F 83 16 126/83 95 11/04/17 22:55 99.3 F 82 16 127/79 94 11/04/17 18:25 98.9 F 103 14 180/107 94 11/04/17 14:35 98.4 F 88 18 165/105 98 Intake and Output 11/04/17 11/05/17 11/05/17 23:59 07:59 15:59 Intake Total 910 / 910 100 / 100 360 / 360 Output Total 0 / 0 Balance 910 / 910 100 / 100 360 / 360 Intake: IV Fluids 350 / 350 100 / 100 Zosyn 3.375 GM In 0.9 % Sodium 100 / 100 100 / 100 Chloride (Mini-Bag +) 100 ML @ 25 mls/hr IVPB Q8HR [facility] Rx#: [id number] Vancocin 1,500 MG In 0.9 % 250 / 250 Sodium Chloride 250 ML @ 166.67 mls/hr IVPB Q12H [facility] Rx#: [id number] Oral 560 / 560 0 / 0 360 / 360 Output: Urine 0 / 0 Other: Meal Dinner Breakfast Percent of Meal Consumed 100% 100% # Voids 1 2 # Bowel Movements 0 Weight 124.3 kg Blood Glucose* 276 203 Patient Weight 11/05/17 23:59 Weight 124.3 kg - Exam Exam: General Examination: CONSTITUTIONAL: Alert, oriented, in no acute distress, non-toxic. EXTREMITIES: CFT 3 seconds all toes. Edema +2 to right foot and pedal pulses palpable. SKIN: Ulceration noted to dorsal aspect of right foot- 0.4cmx0.4cmx2.5cm depth without probe to bone. Fibrous slough tissue noted within wound. Yellow/ brown. Malodorous - No drainage noted at this time. Minimal edema or erythema surrounding wound however there is marked edema, warmth, erythema and tenderness to the dorsal aspect of the foot extending between toes #2 #3 #4 and proximally to ankle but not beyond. NEUROLOGIC: Diminished sensation to light or moderate touch. - Lab Result Diagrams: 11/05/17 05:44 11/05/17 05:44 Labs: Abnormal lab results MPV 8.4 fL (9.4-12.4) L 11/05/17 05:44 Monocytes # 1.6 K/mcL (0.0-1.3) H 11/04/17 04:09 ESR 46 mm/hr (0-10) H 11/03/17 17:53 Sodium 133 mEq/L (136-145) L 11/05/17 05:44 Glucose 175 mg/dL (70-105) H 11/05/17 05:44 POC Glucose 203 mg/dL (70-99) H 11/05/17 11:55 Hemoglobin A1c 8.9 % (-5.6) H 11/04/17 04:09 Calcium 7.9 mg/dL (8.6-10.3) L 11/05/17 05:44 AST 10 Units/L (13-39) L 11/04/17 04:09 C-Reactive Protein 57 mg/L (Less than 10) H 11/03/17 17:53 HDL Cholesterol 37 mg/dL (40-59) L 11/04/17 04:09 Vancomycin Trough 13 mcg/mL (5-10) H 11/05/17 05:44 Microbiology, Last 48 Hours 11/04/17 11:40 Wound Culture - Preliminary Right Foot Gram Negative Eriberto Consult Discharge Plan - Plan Referrals: [facility] [Other] Fausto Tomlinson, SOHA [Primary Care Provider] -
[2017-11-05] MEDS: Insulin DETEMIR 100 UNIT/ML X5UNITS SQ SCH ×2 (20:56)
[2017-11-05] MEDS: traMADol 50 MG TABLET PO PRN (20:57)
[2017-11-06 05:53] LABS: Hematocrit 40.2 % (37.5-50.1); Hemoglobin 13.7 g/dL (12.9-16.9); Mean Corpuscular HGB Conc 34.1 g/dL (31.6-35.5); Mean Corpuscular Hemoglobin 29.7 pg (28.0-33.3); Mean Corpuscular Volume 87.2 fL (83.0-100.0); Mean Platelet Volume 8.3 fL (9.4-12.4); Platelet Count 203 K/mcL (140-400); Red Blood Count 4.61 M/mcL (4.19-5.50); Red Cell Distribution Width 12.7 % (11.5-14.5)
[2017-11-06] MEDS: *HR* Heparin 5,000 UNIT/ML VIAL SQ SCH ×3 (06:04→20:17)
[2017-11-06 06:16] LABS: BUN/Creatinine Ratio 14 (6-26); Blood Urea Nitrogen 12 mg/dL (6-20); Calcium 8.3 mg/dL (8.6-10.3); Carbon Dioxide 29 mEq/L (23-29); Chloride 99 mEq/L (98-107); Glucose 191 mg/dL (70-105); Osmolality,Calculated 285 (280-300); Potassium 4.2 mEq/L (3.5-5.1); Sodium 135 mEq/L (136-145); eGFR For Non-African Americans > 60 (> 60)
[2017-11-06] MEDS: *HR* HYDROcodone/Acet 5/325 mg TABLET PO PRN ×3 (06:34→20:17)
[2017-11-06] MEDS: Piperacillin/Tazobactam 3.375 GM in 0.9 % Sodium Chloride Mini Bag 100 ML IVPB SCH ×2 (08:07→15:20)
[2017-11-06] MEDS: Lisinopril 20 MG TABLET PO SCH (08:07)
[2017-11-06] MEDS: Insulin LISPRO 300 UNITS/3 ML VIAL SQ SCH ×4 (08:08→21:48)
[2017-11-06] MEDS ORDERED: Gadolinium Contrast Agent (WT Based) IV PRN (13:02)
--- NOTE | 2017-11-06 13:04 | Podiatry Progress Note ---
Date of Encounter: 11/06/17 Time of Encounter: 12:00 - Assessment and Plan (1) Chronic ulcer of right foot with fat layer exposed Current Visit: Yes Status: Acute Diabetic foot ulcer with fat layer exposed without probe to bone with associated cellultis Plan: Assessed today at bedside WBC trending down- Culture final citrobacter and group b strep Clinically foot appears worse today- cellulitis margins were marked for monitoring per and erythema has extended proximally medially and laterally from markings. Erythema remains to dorsal aspect of foot not extending beyond ankle. Pitting edema remains. Increased warmth, drainage and odor Will obtain MRI imaging at this time for possible abscess/osteo Consider ID consult for further antibiotic management Will further decide plan based on MRI results At this time continue to monitor, continue IV antibiotics Limited weight bearing Elevate Flushed with saline and window dressing applied- patient wished to take a shower while dressing was removed- nurse to reapply (2) Diabetic foot ulcer associated with diabetes mellitus due to underlying condition Current Visit: Yes Status: Acute Qualifiers: Diabetic foot ulcer location: midfoot Laterality: right Non-pressure ulcer stage: with other severity Qualified Code(s): E08.621 - Diabetes mellitus due to underlying condition with foot ulcer; L97.418 - Non-pressure chronic ulcer of right heel and midfoot with other specified severity Subjective Interval history: Mr. Cedeno is a 46 year old diabetic male with neuropathy who came in with a right foot wound. Debridement was complete per - cultures were obtained and sent- Positive for citrobacter and Group B strep. States pain has increased to foot over the past 24 hours and he has noticed chills since this morning. Patient has dressing intact -there is strikethrough drainage noted to dressing. Patient denies any known n/v or flu like symptoms. WBC has decreased to 9.3 today. Objective - Vital Signs Vital Signs: Vital Signs Temp Pulse Resp BP Pulse Ox 11/06/17 10:27 98.5 F 89 16 157/97 95 11/06/17 04:19 98.5 F 82 18 133/78 94 11/06/17 00:10 99.5 F 85 16 135/78 96 11/05/17 20:55 99.0 F 89 16 158/99 95 11/05/17 16:54 98.6 F 87 15 167/95 96 Intake and Output 11/05/17 11/06/17 11/06/17 23:59 07:59 15:59 Intake Total 1070 / 1070 350 / 350 360 / 360 Output Total 0 / 0 0 / 0 Balance 1070 / 1070 350 / 350 360 / 360 Intake: IV Fluids 350 / 350 350 / 350 Zosyn 3.375 GM In 0.9 % Sodium 100 / 100 100 / 100 Chloride (Mini-Bag +) 100 ML @ 25 mls/hr IVPB Q8HR [facility] Rx#: [id number] Vancocin 1,500 MG In 0.9 % 250 / 250 250 / 250 Sodium Chloride 250 ML @ 167 mls/hr IVPB Q12H [facility] Rx#: [id number] Oral 720 / 720 0 / 0 360 / 360 Output: Urine 0 / 0 0 / 0 Other: Meal Dinner Breakfast Percent of Meal Consumed 100% 100% # Voids 1 1 # Bowel Movements 1 Weight 126.1 kg Blood Glucose* 247 244 Patient Weight 11/06/17 23:59 Weight 126.1 kg - Exam Exam: General Examination: CONSTITUTIONAL: Alert, oriented, in no acute distress, non-toxic. EXTREMITIES: CFT 3 seconds all toes. Edema +2 to right foot and pedal pulses palpable. SKIN: Ulceration noted to dorsal aspect of right foot- 0.4cmx0.4cmx2.5cm depth without probe to bone. Fibrous slough tissue noted within wound. Yellow/ brown. Malodorous, worsening odor noted today - Mild serous drainage noted at this time. Minimal edema or erythema surrounding wound however there is marked edema, warmth, erythema and tenderness to the dorsal aspect of the foot extending between toes #2 #3 #4 and proximally to ankle but not beyond. width and length of cellulitis has extended on todays assessment. Worsening appearance. Increased warmth NEUROLOGIC: Diminished sensation to light or moderate touch. - Lab Result Diagrams: 11/06/17 05:09 11/06/17 05:09 Labs: Abnormal lab results MPV 8.3 fL (9.4-12.4) L 11/06/17 05:09 Monocytes # 1.6 K/mcL (0.0-1.3) H 11/04/17 04:09 ESR 46 mm/hr (0-10) H 11/03/17 17:53 Sodium 135 mEq/L (136-145) L 11/06/17 05:09 Glucose 191 mg/dL (70-105) H 11/06/17 05:09 POC Glucose 244 mg/dL (70-99) H 11/06/17 11:26 Hemoglobin A1c 8.9 % (-5.6) H 11/04/17 04:09 Calcium 8.3 mg/dL (8.6-10.3) L 11/06/17 05:09 AST 10 Units/L (13-39) L 11/04/17 04:09 C-Reactive Protein 57 mg/L (Less than 10) H 11/03/17 17:53 HDL Cholesterol 37 mg/dL (40-59) L 11/04/17 04:09 Vancomycin Trough 13 mcg/mL (5-10) H 11/05/17 05:44 Microbiology, Last 48 Hours 11/04/17 11:40 Wound Culture - Final Right Foot Citrobacter koseri Strep agalactiae - (Group B) Consult Discharge Plan - Plan Referrals: [facility] [Other] Fausto Tomlinson, SOHA [Primary Care Provider] -
--- NOTE | 2017-11-06 13:37 | Internal Med Progress Note ---
Hospitalist Progress Note - Encounter Date of Encounter: 11/06/17 Time of Encounter: 08:30 - Subjective Interval History: Patient was seen and examined at bedside Denies any fever chills nausea vomiting diarrhea No overnight events Tolerated by mouth diet, pain is controlled - Exam Vitals: Temp Pulse Resp BP Pulse Ox 98.5 F 89 16 157/97 95 11/06/17 10:27 11/06/17 10:27 11/06/17 10:27 11/06/17 10:27 11/06/17 10:27 Exam: General: Patient is alert, oriented, no acute distress, obese Head: atraumatic, normocephalic, Eye: normal appearance, PERRL, no scleral icterus, no conjunctival injection ENT: mucous membranes moist, normal external ear exam Neck: normal inspection, trachea midline, full ROM, no carotid bruits Chest: normal inspection, symmetric chest rise Respiratory: Good respiratory effort. Bilateral breath sounds are clear without wheezing, crackles, or rhonchi. Cardiovascular: Regular rate and rhythm. s1 and s2 No clicks, rubs, gallops, or murmors. Abdomen: Bowel sounds present normoactive x-4 quadrants. Abdomen is soft, nondistended. no Epigastric tenderness. No guarding or rebound. No organomegaly noted, obese musculoskeletal: Spontaneously moving all extremities. no edema, no calf tenderness DP pulses intact Skin: warm, dry, intact. swelling of the right LE has improved, RLE wrapped in dressing whicis clean Neuro: Alert and oriented x4. Sensation light touch intact. Cranial nerves 2- 12 is intact. Not aphasic, gait is steady, rapid hand movements intact, finger- to-nose intact, Psych: Patient's affect is normal - Assessment and Plan (1) Diabetic foot ulcer associated with diabetes mellitus due to underlying condition Current Visit: Yes Status: Acute Assessment and Plan: Associated to neuropathic state. ESR 46 CRP 57 There is also evidence of onychomycosis with interphalangeal skin breakdown which are associated factors that act as ports of entry. On IV Zosyn and vancomycin since 11/03 Podiatry consulted s/p debridement 11/04 Wound is worsening as per podiatry- plan pending MRI report MRI ordered on 11/06- will follow results 2x wound cx sent by podiatry 11/04 - growing gram negative rods - and strep agalactiae and citrobacter koseri in addition to two more organisms pending bcx sent 11/03- prelim negative Wound care as per podiatry wound care consulted We will obtain ID consult PT consult SW consult (2) Sepsis affecting skin Current Visit: Yes Status: Resolved Assessment and Plan: Evidenced by leukocytosis 15.8 and tachycardia 104. secondary to above Lactate wnl. management as per above Now resolved (3) Diabetes mellitus Current Visit: Yes Status: Acute Assessment and Plan: insulin sliding scale levemir 10 mg QHS he was counseled on nutrition and importance of compliance to medications uncontrolled A1c 8.9 Diabetic education. (4) Hypertension Current Visit: Yes Status: Chronic Assessment and Plan: Uncontrolled. increased lisinopril to 30 mg Qday IVF discontinued will continue to follow BP and titrate medications (5) Obesity (BMI 30-39.9) Current Visit: Yes Status: Chronic Assessment and Plan: nutrition consultation diet and exercise advised. (6) DVT prophylaxis Current Visit: Yes Status: Acute Assessment and Plan: SubQ heparin - Time Spent with Patient Total time spent is greater than 50% in coordination of care (as documented) at patient's floor/unit and/or counseling patient: Internal Medicine: Result - Labs CBC & Chem 7: 11/06/17 05:09 11/06/17 05:09 Labs: Short CBC 11/06/17 Range/Units 05:09 WBC 9.3 (4.3-11.1) K/mcL Hgb 13.7 (12.9-16.9) g/dL Hct 40.2 (37.5-50.1) % Plt Count 203 (140-400) K/mcL BMP 11/06/17 05:09 Sodium 135 L Potassium 4.2 Chloride 99 Carbon Dioxide 29 BUN 12 Creatinine 0.85 Glucose 191 H Calcium 8.3 L Consult Discharge Plan - Plan Referrals: [facility] [Other] Fausto Tomlinson, [employer] [employer] [Primary Care Provider] - (1) Diabetic foot ulcer associated with diabetes mellitus due to underlying condition Qualifiers: Diabetic foot ulcer location: midfoot Laterality: right Non-pressure ulcer stage: with other severity Qualified Code(s): E08.621 - Diabetes mellitus due to underlying condition with foot ulcer; L97.418 - Non-pressure chronic ulcer of right heel and midfoot with other specified severity (3) Diabetes mellitus Qualifiers: Diabetes mellitus type: type 2 Diabetes mellitus roasterman insulin use: without roasterman use Diabetes mellitus complication status: with skin complications Diabetes mellitus complication detail: with foot ulcer Qualified Code(s): E11.621 - Type 2 diabetes mellitus with foot ulcer; L97.509 - Non-pressure chronic ulcer of other part of unspecified foot with unspecified severity (4) Hypertension Qualifiers: Hypertension type: essential hypertension Qualified Code(s): I10 - Essential (primary) hypertension
[2017-11-06] MEDS: traMADol 50 MG TABLET PO PRN (15:20)
[2017-11-06] MEDS ORDERED: Acetaminophen 325 MG TABLET PO ONE (17:55)
[2017-11-06] MEDS: Insulin DETEMIR 100 UNIT/ML X5UNITS SQ SCH (21:47)
[2017-11-07] MEDS: Piperacillin/Tazobactam 3.375 GM in 0.9 % Sodium Chloride Mini Bag 100 ML IVPB SCH ×4 (01:08→23:22)
[2017-11-07 04:51] LABS: Hemoglobin 12.4 g/dL (12.9-16.9); Mean Corpuscular HGB Conc 34.4 g/dL (31.6-35.5); Mean Corpuscular Hemoglobin 29.2 pg (28.0-33.3); Mean Corpuscular Volume 84.7 fL (83.0-100.0); Mean Platelet Volume 8.3 fL (9.4-12.4); Platelet Count 198 K/mcL (140-400); Red Blood Count 4.25 M/mcL (4.19-5.50); Red Cell Distribution Width 12.8 % (11.5-14.5)
[2017-11-07] MEDS: *HR* Heparin 5,000 UNIT/ML VIAL SQ SCH ×3 (05:24→21:12)
[2017-11-07 05:35] LABS: BUN/Creatinine Ratio 14 (6-26); Blood Urea Nitrogen 11 mg/dL (6-20); Carbon Dioxide 24 mEq/L (23-29); Chloride 98 mEq/L (98-107); Glucose 308 mg/dL (70-105); Osmolality,Calculated 283 (280-300); Potassium 3.9 mEq/L (3.5-5.1); Sodium 131 mEq/L (136-145); eGFR For Non-African Americans > 60 (> 60)
--- NOTE | 2017-11-07 07:55 | Internal Med Progress Note ---
Hospitalist Progress Note - Encounter Date of Encounter: 11/07/17 Time of Encounter: 07:50 - Subjective Interval History: Patient was seen and examined at bedside, reports that the Denies any fever chills nausea vomiting diarrhea No overnight events Tolerated by mouth diet, pain is controlled - Exam Vitals: Temp Pulse Resp BP Pulse Ox 98.9 F 92 16 161/106 95 11/07/17 05:49 11/07/17 05:49 11/07/17 05:49 11/07/17 05:49 11/07/17 05:49 Exam: General: Patient is alert, oriented, no acute distress, obese Head: atraumatic, normocephalic, Eye: normal appearance, PERRL, no scleral icterus, no conjunctival injection ENT: mucous membranes moist, normal external ear exam Neck: normal inspection, trachea midline, full ROM, no carotid bruits Chest: normal inspection, symmetric chest rise Respiratory: Good respiratory effort. Bilateral breath sounds are clear without wheezing, crackles, or rhonchi. Cardiovascular: Regular rate and rhythm. s1 and s2 No clicks, rubs, gallops, or murmors. Abdomen: Bowel sounds present normoactive x-4 quadrants. Abdomen is soft, nondistended. no Epigastric tenderness. No guarding or rebound. No organomegaly noted, obese musculoskeletal: Spontaneously moving all extremities. no edema, no calf tenderness DP pulses intact Skin: warm, dry, intact. redness and swelling extending up to the richard with erythema and swelling, 4th adn 5th toes are dusky, plantar aspect of the foot with an ulcer. Neuro: Alert and oriented x4. Sensation light touch intact. Cranial nerves 2- 12 is intact. Not aphasic, gait is steady, rapid hand movements intact, finger- to-nose intact, Psych: Patient's affect is normal - Assessment and Plan (1) Diabetic foot ulcer associated with diabetes mellitus due to underlying condition Current Visit: Yes Status: Acute Assessment and Plan: Associated to neuropathic state. ESR 46 CRP 57 on 11/07/17- leukocytosis, has had fever spikes through 11/06/17 the third and fourth toes are dusky in color and erythema extends up to ankle, i discussed with podiatry team today along with MRI findings ( ?nec fasc vs ischemic changes secondary to swelling)- will need OR for debridement On IV Zosyn and vancomycin since 11/03 started on clindamycin 11/07/17 will send CPK and lactic acid ID consulted will follow recommendations Podiatry consulted s/p bed side debridement 11/04 MRI ordered on 11/06- early osteomyelitis - full report below 2x wound cx sent by podiatry 11/04 - growing gram negative rods - and strep agalactiae and citrobacter koseri in addition to two more organisms pending ( so far sensitive to zosyn and vancomycin) bcx sent 11/03- prelim negative Wound care as per podiatry wound care consulted There is also evidence of onychomycosis with interphalangeal skin breakdown which are associated factors that act as ports of entry. PT consult SW consult (2) Sepsis affecting skin Current Visit: Yes Status: Resolved Assessment and Plan: Evidenced by leukocytosis 15.8 and tachycardia 104. secondary to above Lactate wnl. management as per above resolved but he became febrile through 11/06/17 with leukocytosis 11 on 11/07 ID consulted on vancomycin, zosyn and clindamycin was added (3) Diabetes mellitus Current Visit: Yes Status: Acute Assessment and Plan: blood glucose is uncontrolled ?secondary to infection but he does reports that at times his blood glucose is being taken while he is eating - will discuss with nursing staff insulin sliding scale levemir 10 mg BID he was counseled on nutrition and importance of compliance to medications uncontrolled A1c 8.9 Diabetic education. (4) Hypertension Current Visit: Yes Status: Chronic Assessment and Plan: Uncontrolled. increased lisinopril to 30 mg Qday IVF discontinued will continue to follow BP and titrate medications (5) Obesity (BMI 30-39.9) Current Visit: Yes Status: Chronic Assessment and Plan: nutrition consultation diet and exercise advised. (6) DVT prophylaxis Current Visit: Yes Status: Acute Assessment and Plan: SubQ heparin - Time Spent with Patient Total time spent is greater than 50% in coordination of care (as documented) at patient's floor/unit and/or counseling patient: Internal Medicine: Result - Labs CBC & Chem 7: 11/07/17 04:35 11/07/17 04:35 Labs: Short CBC 11/07/17 Range/Units 04:35 WBC 11.2 H (4.3-11.1) K/mcL Hgb 12.4 L (12.9-16.9) g/dL Hct 36.0 L (37.5-50.1) % Plt Count 198 (140-400) K/mcL BMP 11/07/17 04:35 Sodium 131 L Potassium 3.9 Chloride 98 Carbon Dioxide 24 BUN 11 Creatinine 0.78 Glucose 308 H Calcium 8.0 L - Impressions Impressions Foot MRI 11/06/17 13:02 IMPRESSION: Small ulcer underlying the 3rd metatarsophalangeal joint with early osteomyelitis. D/ /06/2017 17:21:44 Harsh Coburn MD / rosalbaay Interpreting Provider: Harsh Coburn MD Consult Discharge Plan - Plan Referrals: [facility] [Other] Fausto Tomlinson CNP [Primary Care Provider] - (1) Diabetic foot ulcer associated with diabetes mellitus due to underlying condition Qualifiers: Diabetic foot ulcer location: midfoot Laterality: right Non-pressure ulcer stage: with other severity Qualified Code(s): E08.621 - Diabetes mellitus due to underlying condition with foot ulcer; L97.418 - Non-pressure chronic ulcer of right heel and midfoot with other specified severity (3) Diabetes mellitus Qualifiers: Diabetes mellitus type: type 2 Diabetes 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
[2017-11-07] MEDS ORDERED: Clindamycin 600 MG/50 ML 600 MG/50 ML IV.SOLN IVPB SCH (08:00)
[2017-11-07] MEDS ORDERED: 0.9 % Sodium Chloride 1,000 ML IVC SCH (08:15)
[2017-11-07] MEDS ORDERED: Insulin DETEMIR 100 UNIT/ML X5UNITS SQ SCH (09:00)
[2017-11-07] MEDS: Lisinopril 20 MG TABLET PO SCH (10:00)
[2017-11-07] MEDS: *HR* HYDROcodone/Acet 5/325 mg TABLET PO PRN ×2 (10:00→20:55)
[2017-11-07] MEDS: Insulin LISPRO 300 UNITS/3 ML VIAL SQ SCH ×4 (10:05→21:14)
--- NOTE | 2017-11-07 13:04 | Podiatry Progress Note ---
Date of Encounter: 11/07/17 Time of Encounter: 07:30 - Assessment and Plan (1) Foot ulcer due to secondary DM Current Visit: Yes Status: Acute (2) Cellulitis Current Visit: Yes Status: Acute Qualifiers: Site of cellulitis: extremity Site of cellulitis of extremity: lower extremity Laterality: right Qualified Code(s): L03.115 - Cellulitis of right lower limb Code(s): L03.90 - Cellulitis, unspecified (3) Chronic ulcer of right foot with fat layer exposed Current Visit: Yes Status: Acute (4) Osteomyelitis of right foot Current Visit: Yes Status: Acute ncreased wbc, spiked fever, discussed MRI results and treatment options. to OR for I&D, debridement of bone. risks vs benefits of surgery and condition discussed. no guaratees made as to the outcome. understands this is a staged procedure and will require more surgery. NPO after breakfast. applications architect to OR. patient has stated he does not want a toe ampuation at this time. Qualifiers: Osteomyelitis type: other acute Qualified Code(s): M86.171 - Other acute osteomyelitis, right ankle and foot Objective - Vital Signs Vital Signs: Vital Signs Temp Pulse Resp BP Pulse Ox 11/07/17 11:32 98.6 F 83 14 135/84 94 11/07/17 10:10 99.2 F 90 19 163/100 94 11/07/17 09:49 99.2 F 90 19 163/100 94 11/07/17 05:49 98.9 F 92 16 161/106 95 11/07/17 01:51 99.6 F 89 16 151/88 95 11/06/17 21:25 100.0 F H 100 16 123/84 96 11/06/17 18:01 100.5 F H 11/06/17 17:06 101.6 F H 11/06/17 15:31 99.4 F 11/06/17 14:55 100.2 F H 87 18 165/96 97 Intake and Output 11/06/17 11/07/17 11/07/17 23:59 07:59 15:59 Intake Total 590 / 590 100 / 100 580 / 580 Output Total 750 / 750 500 / 500 0 / 0 Balance -160 / -160 -400 / -400 580 / 580 Intake: IV Fluids 350 / 350 100 / 100 550 / 550 Cleocin Premix 600 MG/50 ML 600 50 / 50 mg In 50 ml @ 50 mls/hr IVPB Q8HR [facility] Rx#:[id number] Zosyn 3.375 GM In 0.9 % Sodium 100 / 100 100 / 100 Chloride (Mini-Bag +) 100 ML @ 25 mls/hr IVPB Q8HR [facility] Rx#: [id number] Vancocin 1,500 MG In 0.9 % 250 / 250 Sodium Chloride 250 ML @ 167 mls/hr IVPB Q12H [facility] Rx#: [id number] Vancocin 1,750 MG In 0.9 % 500 / 500 Sodium Chloride 500 ML @ 333. 333 mls/hr IVPB Q12H [facility] Rx#: [id number] Oral 240 / 240 30 / 30 Output: Urine 750 / 750 500 / 500 0 / 0 Other: Meal Dinner Weight 126 kg Blood Glucose* 286 202 Patient Weight 11/07/17 23:59 Weight 126 kg - Lab Result Diagrams: 11/07/17 04:35 11/07/17 04:35 Labs: Abnormal lab results WBC 11.2 K/mcL (4.3-11.1) H 11/07/17 04:35 Hgb 12.4 g/dL (12.9-16.9) L 11/07/17 04:35 Hct 36.0 % (37.5-50.1) L 11/07/17 04:35 MPV 8.3 fL (9.4-12.4) L 11/07/17 04:35 Monocytes # 1.6 K/mcL (0.0-1.3) H 11/04/17 04:09 ESR 46 mm/hr (0-10) H 11/03/17 17:53 Sodium 131 mEq/L (136-145) L 11/07/17 04:35 Glucose 308 mg/dL (70-105) H 11/07/17 04:35 POC Glucose 202 mg/dL (70-99) H 11/07/17 11:27 Hemoglobin A1c 8.9 % (-5.6) H 11/04/17 04:09 Calcium 8.0 mg/dL (8.6-10.3) L 11/07/17 04:35 AST 10 Units/L (13-39) L 11/04/17 04:09 C-Reactive Protein 57 mg/L (Less than 10) H 11/03/17 17:53 HDL Cholesterol 37 mg/dL (40-59) L 11/04/17 04:09 Microbiology, Last 48 Hours 11/04/17 11:40 Wound Culture - Final Right Foot Citrobacter koseri Strep agalactiae - (Group B) Consult Discharge Plan - Plan Referrals: [facility] [Other] Fausto Tomlinson, SOHA [Primary Care Provider] -
--- NOTE | 2017-11-07 13:33 | Infectious Disease Consult ---
Date of Encounter: 11/07/17 Time of Encounter: 13:28 Assessment and Plan (1) Sepsis affecting skin Status: Resolved Assessment and plan: The patient had 2 sirs criteria on admission. Likely secondary to right foot osteomyelitis. Improved. White blood cell count has normalized. Tachycardia is intermittent and not sustained. He did have a fever yesterday with a MAXIMUM TEMPERATURE of 101.6. Blood cultures obtained 11/03/17 are no growth to date 2 sets. (2) Osteomyelitis of right foot Status: Acute Assessment and plan: Location: Right foot. Causative organism: Likely Escherichia coli, Citrobacter, and group B strep per previous wound cultures. Likely secondary to diabetic foot ulcer. X-ray and CT scan were negative for osteomyelitis. The patient had progression of symptoms and underwent an MRI that showed early osteomyelitis, but no abscess or necrotizing fasciitis. Podiatry consult. Planning to take the patient to the operating room later today. CK level normal at 64. Recheck ESR and CRP now. Continue Zosyn 3.375 g IV every 8 hours. Discontinue Vancomycin. Discontinue clindamycin. Duration of treatment depends on the clinical picture. Monitor renal function of her drug toxicity and dose adjust antibiotics. Await cultures. De-escalate if/when able. patient services manager to assist with discharge planning. Consult vascular access team once final antibiotic regimen is determined. Further recommendations from the ID team pending additional clinical outcomes and culture results. Qualifiers: Osteomyelitis type: other acute Qualified Code(s): M86.171 - Other acute osteomyelitis, right ankle and foot (3) Cellulitis Status: Acute Assessment and plan: Location: Right foot. Causative organism: Likely Citrobacter, group B strep, and Escherichia coli. Likely secondary to diabetic foot ulcer. Clinically worse based on previous skin markings. MRI was negative for necrotizing fasciitis. CK level was normal. Continue antibiotics as above. Podiatry consult to assist with management. Qualifiers: Site of cellulitis: extremity Site of cellulitis of extremity: lower extremity Laterality: right Qualified Code(s): L03.115 - Cellulitis of right lower limb (4) Foot ulcer due to secondary DM Status: Acute Assessment and plan: Location: Plantar aspect of the right foot. Etiology: Unclear. Patient denies known trauma, but states he often walks around barefoot and has peripheral neuropathy. Podiatry consult and following. Wound care per the podiatry team. (5) Diabetes mellitus Status: Acute Assessment and plan: Uncontrolled. Hemoglobin A1c 8.9%. Recommend aggressive glucose monitoring and control to promote wound healing and prevent further infection. Management per the primary team. Qualifiers: Diabetes mellitus type: type 2 Diabetes mellitus manager long term care insulin use: without manager long term care use Diabetes mellitus complication status: with skin complications Diabetes mellitus complication detail: with foot ulcer Qualified Code(s): E11.621 - Type 2 diabetes mellitus with foot ulcer; L97.509 - Non-pressure chronic ulcer of other part of unspecified foot with unspecified severity (6) Hypertension Status: Chronic Qualifiers: Hypertension type: essential hypertension Qualified Code(s): I10 - Essential (primary) hypertension (7) Obesity (BMI 30-39.9) Status: Chronic Infectious Disease HPI - Data of Consult Patient: new to practice Consult date: 11/07/17 Requesting Physician: Yadira Lezama MD Primary Care Provider: Fausto Tomlinson CNP Family Provider: BEVERLEY - Consult Narrative Reason for consult: Right foot osteomyelitis History of present illness: Mr. Cedeno is a 46 year old male with a past medical history of type 2 diabetes on oral anti-hyperglycemics for the past 10 years, hyperlipidemia, and hypertension. The patient was admitted to the hospital November 03 for right foot ulcer and cellulitis. We are consulted November 07 for further recommendations for right foot osteomyelitis. Briefly, the patient's a 46-year-old male with a past medical history as stated above. The patient presented to the emergency department with complaints of a ten-day history of a right foot ulcer of unknown etiology. He states he was using antibiotic ointment at home and when he woke up Saturday morning the size of his foot had nearly doubled. Upon arrival to the ER, the patient was tachycardic and had neutrophilic leukocytosis. Lactic acid and serum creatinine were normal. ESR is elevated at 46 with a CRP of 57. Blood cultures were obtained 2 sets. He had a right foot x-ray that showed findings consistent with soft tissue swelling. He then had a CT of the right lower extremity that showed a right plantar foot ulcer with phlegmon versus devitalized tissue, but no osteo-or abscess. He had a wound culture obtained that grew Escherichia coli, Citrobacter, and group B strep. He was started empirically on IV antibiotics and admitted to the hospital for further evaluation. Since admission, the patient's white blood cell count has normalized, however, his foot has worsened clinically. He was evaluated by podiatry who performed a bedside I&D. Wound cultures obtained at that time also grew out group B strep and Citrobacter. He had bilateral lower extremity Dopplers that were negative. A1c was elevated at 8.9%. Due to progression of his symptoms, he underwent a right foot MRI yesterday that showed early osteomyelitis. He did spike a fever yesterday with a MAXIMUM TEMPERATURE of 1016. He has also had some intermittent tachycardia, but nothing sustained. Clindamycin was added to his antibiotic regimen yesterday. His CK level was normal at 64. Currently, he is on vancomycin and Zosyn and clindamycin. We have been asked to evaluate and make further recommendations. During my exam today, the patient endorses a history as stated above. States he is unsure how the ulceration occurred to the bottom of his foot, but states it has been there for about 10 days as far as he knows and only reason he noticed it was because there was some blood on the kitchen floor. He denies any known trauma or the mechanism of injury that caused the ulcer. He denies any fevers or chills or rigors at home, but states she has been having fevers and chills here. He denies any headache or neck pain. Denies any chest pain, shortness of breath, or cough. He denies any nausea, vomiting, diarrhea, constipation. He does tell me that his stools are little bit loose and starting on IV antibiotics. He denies any abdominal pain, urinary complaints, or appetite changes. He complains of severe pain in the right foot, worse with weightbearing or movement. He reports that he had. Bloody drainage from the plantar aspect of the right foot today when he was walking to the bathroom. He states the redness and swelling and warmth is worse today and has been progressing over the past 2 days. He denies any oral thrush or other skin lesions. The patient lives at home with his . He has a cat at home, but denies any bites or scratches. 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 He does report that he often remains in the [place] to finish, but he is unsure if that is how he sustained the injury or if he has been waiting since the ulceration developed. He denies any tobacco, alcohol, or illicit drug use. He denies any chronic infectious diseases. CC: Yadira Lezama MD Past Med Surg Social Fam HX - Past Medical History Attestation: Yes The following information was validated with the patient. Source: patient, old records reviewed, nursing notes reviewed Medical history: diabetes, hyperlipidemia, hypertension Additional medical history: Neuropathy Psychiatric history: no psych history - Past Surgical History Additional surgical history: right ankle (broke in 6 places, has a pankaj) - Social History Smoking Status: Never smoker Smokeless Tobacco Status: No Alcohol use: rarely Drug use: none Occupational status: employed Current living situation: Home, With Family Activity Level: Independent ambulation Recent Out of Country Travel Within the Last 8 Weeks: No Exposure or Possible Exposure to Illness During Travel: No Infectious Disease-CN:Meds Amitriptyline [Elavil] 25 mg PO HS 11/03/17 [History] Dulaglutide [Trulicity] 0.75 mg SQ SA 11/03/17 [History] Empagliflozin [Jardiance] 10 mg PO DAILY 11/03/17 [History] Lisinopril [Zestril] 10 mg PO HS 11/03/17 [History] Simvastatin [Zocor] 10 mg PO HS 11/03/17 [History] metFORMIN [Glucophage] 1,000 mg PO BIDWM 11/03/17 [History] 3 Allergy/AdvReac Type Severity Reaction Status Date / Time No Known Allergies Allergy Verified 11/04/17 14:31 All systems: reviewed and no additional remarkable complaints except as stated Exam - Constitutional Vitals: Temp Pulse Resp BP Pulse Ox 98.6 F 83 14 135/84 94 11/07/17 11:32 11/07/17 11:32 11/07/17 11:32 11/07/17 11:32 11/07/17 11:32 General appearance: cooperative, no acute distress, obese - Head Head exam: Present: atraumatic, normal inspection, normocephalic - Eye Eye exam: Present: EOMI, normal appearance, PERRL Pupils: Present: normal accommodation - ENT ENT exam: Present: mucous membranes moist - Neck Neck exam: Present: normal inspection - Respiratory Respiratory exam: Present: CTAB. Absent: rales, respiratory distress, rhonchi, wheezes - Cardiovascular Cardiovascular exam: Present: RRR, +S1, +S2 - GI/Abdominal GI/Abdominal exam: Present: distended (Obese), normal bowel sounds, soft. Absent: tenderness - Extremities Exam Extremities exam: Present: joint swelling (Right ankle), pedal edema (1+ right lower extremity), tenderness (Right foot) Additional comments: Erythema noted to the dorsal aspect of the right foot that has progressed beyond previous skin markings. Erythema spreads up to the PIP of the second and third toes. Ecchymosis and erythema encompasses the entire fourth toe, but the fifth toe is completely spared. Ulceration noted to the plantar aspect of the right foot overlying the third metatarsal with Mesalt packing intact. Mild fluctuance noted. Severely tender on palpation. No active drainage noted on exam. - Neurological Exam Neurological exam: Present: alert, oriented X3, no focal deficits - Psychiatric Psychiatric exam: Present: normal affect, normal mood - Skin Skin exam: Present: dry, intact, normal color, warm Infectious Disease CN: Results - Labs CBC & Chem 7: 11/07/17 04:35 11/07/17 04:35 Cultures: Cultures 11/04/17 11:40 Wound Culture - Final Right Foot Citrobacter koseri Strep agalactiae - (Group B) Consult Discharge Plan - Plan Referrals: BEVERLEY [Other] Fausto Tomlinson CNP [Primary Care Provider] - - Attending Attestation This is an addendum to original report dictated by Anca Choe CNP. Please refer to Anca's note for full detail. Patient is a 46-year-old gentleman with history of diabetes mellitus type 2, morbid obesity and hyperlipidemia apparently has been having a right foot ulcer and cellulitis for a few weeks prior to admission. Patient was admitted and wound culture was obtained which was positive for Escherichia coli, Citrobacter and group B streptococcus. Patient had an MRI which revealed early osteomyelitis but no abscesses no fluid collection no phlegmon or necrotizing fasciitis. Patient was started on empiric antibiotics with vancomycin and clindamycin and we were consulted to make further recommendations. Patient scheduled to go to the OR later today for I&D. At this point I do not think the patient has necrotizing fasciitis with a negative MRI and a normal CK level. Cultures did not reveal MRSA I would DC the vancomycin and clindamycin and discontinue Zosyn. We will even consider to deal antibiotics if the anaerobic cultures are negative. Intra-Op cultures did not reveal any new organism Monitor labs and for drug toxicity Goal for treatment is at least 6 weeks While on antibiotics he needs weekly labs including CBC, BMP, ESR and CRP Patient will probably need a PICC line placement prior to discharge
--- NOTE | 2017-11-07 18:11 | Anesthesia Evaluation PreOp ---
Date of Encounter: 11/07/17 Time of Encounter: 18:08 - Past History Planned Operation: R foot I and D with debridment bone Cardiac History: HTN, Hyperlipidemia Pulmonary History: Denies Any Significant HX ALUMNI RELATIONS COORDINATOR History: Denies Any Significant HX Other Medical History: Diabetes Type II (poorly controlled) Anesthesia History: No Prior Anesthetic Complications, Past Anesthesia (ankle sx ) Alcohol Use: rarely Drug use: none Medications and Allergies Amitriptyline [Elavil] 25 mg PO HS 11/03/17 [History] Dulaglutide [Trulicity] 0.75 mg SQ SA 11/03/17 [History] Empagliflozin [Jardiance] 10 mg PO DAILY 11/03/17 [History] Lisinopril [Zestril] 10 mg PO HS 11/03/17 [History] Simvastatin [Zocor] 10 mg PO HS 11/03/17 [History] metFORMIN [Glucophage] 1,000 mg PO BIDWM 11/03/17 [History] 3 Allergy/AdvReac Type Severity Reaction Status Date / Time No Known Allergies Allergy Verified 11/04/17 14:31 - Meds/Allergy Pre-op Review Medications Reviewed: Yes Allergies Reviewed: Yes Beta Blockers on Current Med List: No Anesthesia Results - Labs 11/07/17 04:35 11/07/17 04:35 Anesthesia Exam Vital Signs/O2 Sat, Most Current Temp Pulse Resp BP Pulse Ox 98.3 F 75 18 150/95 95 11/07/17 14:03 11/07/17 14:03 11/07/17 14:03 11/07/17 14:03 11/07/17 14:03 Weight: 126kg NPO (# of Hours): >8 - HEENT Pupil (Motor): Pupils equal, EOMI Mallampati: III Teeth: Normal Oral Opening: Greater than 3 - ALUMNI RELATIONS COORDINATOR LOC: Oriented ALUMNI RELATIONS COORDINATOR Motor: Normal RUE, Normal LUE, Normal RLE, Normal LLE, Normal Face ALUMNI RELATIONS COORDINATOR Sensory: Normal: RUE, LUE, RLE, LLE, Face - Cardiac Rhythm: Regular - Pulmonary Breath Sounds: bilateral Clear Respiratory Effort: Symmetrical Anesthesia Assess/Plan ASA Score: 3 (HTN, hyperlipidemia, poorly controlled DM) Modified Marie Scale for Level of Consciousness: Cooperative, oriented, and tranquil Anesthetic Plan: General (plan b), MAC Monitoring Plan: Standard Monitors Recovery Plan: PACU
[2017-11-07] MEDS ORDERED: *HR* Propofol 200 MG/20 ML VIAL IVP ONE (18:17)
[2017-11-07] MEDS ORDERED: Propofol 500 MG/50 ML INFUS..BTL ONE (18:17)
[2017-11-07] MEDS ORDERED: *HR* Midazolam HCl 2 MG/2 ML VIAL ONE (18:17)
[2017-11-07] MEDS ORDERED: *HR* FentaNYL (PF) 100 MCG/2 ML VIAL ONE (18:17)
[2017-11-07] MEDS ORDERED: Vancomycin 1,000 MG VIAL ONE ×2 (18:23→18:24)
[2017-11-07] MEDS ORDERED: Lidocaine -MPF 2% 2 ML VIAL ONE (18:23)
--- NOTE | 2017-11-07 18:47 | Operative Note ---
Date of procedure: 11/07/17 Pre-op diagnosis: right diabetic foot infection, osteomyelitis Post-op diagnosis: same Procedure: incision and drainage right foot debridement of bone 3rd metatarsal and proximal phalanx Implants: none Complications: none Anesthesia: GETA Local Anesthetics: 1% Lidocaine HCL SubQ (cc) Surgeon: Jabari Pritchett Was there an web press operator assistant present: No Estimated blood loss (cc): 25 Specimen: right 3rd met bone and proximal phalanx micro and path, micro-soft tissue Condition: stable Disposition: PACU Procedure in Detail: Indications: 46-year-old diabetic male admitted with diabetic foot infection on MRI found to have osteomyelitis of the 3rd met head and proximal phalanx bone and a worsening cellulitis on the dorsum of the foot. Patient spiked a fever and white blood cell count increased. Decision was made to proceed with an incision and drainage of the right foot and debridement of bone of the third metatarsal and proximal phalanx. Nature of the procedure, risks first benefits potential complications consequences of surgery and his condition discussed at length. Patient understood this is a staged procedure no guarantees made as to the outcome. He did not want a toe amputation done today. I did explain to the patient that he is high risk for toe/partial foot/limb loss due to his infection. All of his questions were answered and informed consent was signed patient was brought from preoperative holding area to the operating room placed on operating room table in the supine position. The right lower extremity was scrubbed prepped and draped in the usual sterile fashion. A right ankle tourniquet was applied but not inflated during the entire procedure. 1% lidocaine plain was injected into the patient's right foot. The following procedures then began. Incision and drainage right foot. Debridement of right foot bone 3rd metatarsal and phalanx. Attention was directed to the plantar aspect of the patient's right foot where an ulceration was present at the pleural to the deep soft tissue. There was devitalized tissue present in the plantar aspect of the foot which was excisionally debrided down to the level of the deep fascia. There was scant purulence. The tissue was segal in color, it was excised and sent to microbiology. Attention was then directed dorsally where a #15 blade was used to make an incision over the third metatarsophalangeal joint. Skin incision was deepened through blunt dissection. The extensor tendons were retracted. An incision was made through the periosteum into the bone of the third metatarsal head and proximal phalanx bone. Surrounding soft tissue was release of the sagittal saw was used to resect the base of the proximal phalanx and the third metatarsal head. C-arm was used to confirm the bone had been removed. Bone from the third metatarsal and the proximal phalanx was sent for pathology and microbiology. The pulse lavage with vancomycin was utilized to irrigate the dorsal and plantar wounds. The wound did extend into the third interspace between the third and fourth digit. The dorsal and plantar wounds also communicated. No purulence could be expressed upon reinspection. Bleeding tissue was present. PRP was applied to the plantar and dorsal foot wounds. Retention sutures were placed and the wound was packed open with quarter-inch iodoform packing. Patient tolerated the anesthesia and the procedure well escorted the recovery room with vital signs stable and vascular status intact to the right foot. Adequate hemostasis was present. Postoperative bandaging included 4 x 4's, ABDs, Kerlix and an Farhan wrap. Patient will return to the floor where he will continue IV antibiotics.
--- NOTE | 2017-11-07 19:41 | Anesthesia Evaluation Post Op ---
Date of Encounter: 11/07/17 Time of Encounter: 19:40 - Vital Signs Vital Signs: Vital Signs/O2 Sat, Most Current Temp Pulse Resp BP Pulse Ox 98.3 F 75 18 150/95 95 11/07/17 14:03 11/07/17 14:03 11/07/17 14:03 11/07/17 14:03 11/07/17 14:03 - Lungs Lungs: Clear Ascult./Percussion - Airway Airway: Non-obstructed - Cardiovascular Regular Rate - Mental Status Mental Status: Alert & Oriented, Answers Appropriately - Pain Pain Scale: 0 Pain Scale used: Numeric (1 - 10) - Nausea Vomiting Nausea Vomiting: Not Present - Hydration Hydration: NPO, Has not voided - Discharge PostOp Status: Transfer Patient to floor
[2017-11-07] MEDS ORDERED: Gadolinium Contrast Agent (WT Based) IV PRN (19:59)
[2017-11-07] MEDS ORDERED: D5% in Water 1,000 ML IVC PRN (19:59)
[2017-11-07] MEDS ORDERED: Dextrose Gel 15 GM/37.5 ML TUBE PO PRN ×2 (19:59)
[2017-11-07] MEDS ORDERED: *HR* Dextrose 50 % in Water (Syg) 50 ML SYRINGE IVP PRN (19:59)
[2017-11-07] MEDS: 0.9 % Sodium Chloride 1,000 ML IVC SCH (20:40)
[2017-11-07] MEDS: Insulin DETEMIR 100 UNIT/ML X5UNITS SQ SCH (21:15)
[2017-11-07] MEDS: traMADol 50 MG TABLET PO PRN (23:20)
[2017-11-08] MEDS: *HR* HYDROcodone/Acet 5/325 mg TABLET PO PRN ×2 (03:34→18:24)
[2017-11-08 05:43] LABS: Hemoglobin 12.2 g/dL (12.9-16.9); Mean Corpuscular HGB Conc 33.9 g/dL (31.6-35.5); Mean Corpuscular Hemoglobin 29.2 pg (28.0-33.3); Mean Corpuscular Volume 86.1 fL (83.0-100.0); Mean Platelet Volume 8.4 fL (9.4-12.4); Platelet Count 222 K/mcL (140-400); Red Blood Count 4.18 M/mcL (4.19-5.50); Red Cell Distribution Width 12.7 % (11.5-14.5)
[2017-11-08 06:00] LABS: BUN/Creatinine Ratio 18 (6-26); Blood Urea Nitrogen 13 mg/dL (6-20); Calcium 8.1 mg/dL (8.6-10.3); Carbon Dioxide 24 mEq/L (23-29); Chloride 100 mEq/L (98-107); Glucose 197 mg/dL (70-105); Osmolality,Calculated 284 (280-300); Sodium 134 mEq/L (136-145); eGFR For Non-African Americans > 60 (> 60)
[2017-11-08] MEDS: *HR* Heparin 5,000 UNIT/ML VIAL SQ SCH ×3 (06:41→20:46)
[2017-11-08] MEDS: traMADol 50 MG TABLET PO PRN (06:41)
[2017-11-08] MEDS: 0.9 % Sodium Chloride 1,000 ML IVC SCH (06:44)
[2017-11-08] MEDS: Piperacillin/Tazobactam 3.375 GM in 0.9 % Sodium Chloride Mini Bag 100 ML IVPB SCH ×3 (08:24→23:36)
[2017-11-08] MEDS: Insulin LISPRO 300 UNITS/3 ML VIAL SQ SCH ×4 (08:26→21:31)
[2017-11-08] MEDS: Lisinopril 20 MG TABLET PO SCH (08:28)
[2017-11-08] MEDS: Insulin DETEMIR 100 UNIT/ML X5UNITS SQ SCH ×2 (08:28→21:30)
--- NOTE | 2017-11-08 09:12 | Internal Med Progress Note ---
Hospitalist Progress Note - Encounter Date of Encounter: 11/08/17 Time of Encounter: 09:07 - Subjective Interval History: Patient was seen and examined at bedside, reports that the pain is controlled. Did well with surgery, feels much better after surgery. Denies any fever chills nausea vomiting diarrhea No overnight events Tolerated by mouth diet, pain is controlled - Exam Vitals: Temp Pulse Resp BP Pulse Ox 98.4 F 84 18 180/115 97 11/08/17 07:35 11/08/17 07:35 11/08/17 07:35 11/08/17 07:35 11/08/17 07:35 Exam: General: Patient is alert, oriented, no acute distress, obese Head: atraumatic, normocephalic, Eye: normal appearance, PERRL, no scleral icterus, no conjunctival injection ENT: mucous membranes moist, normal external ear exam Neck: normal inspection, trachea midline, full ROM, no carotid bruits Chest: normal inspection, symmetric chest rise Respiratory: Good respiratory effort. Bilateral breath sounds are clear without wheezing, crackles, or rhonchi. Cardiovascular: Regular rate and rhythm. s1 and s2 No clicks, rubs, gallops, or murmors. Abdomen: Bowel sounds present normoactive x-4 quadrants. Abdomen is soft, nondistended. no Epigastric tenderness. No guarding or rebound. No organomegaly noted, obese musculoskeletal: Spontaneously moving all extremities. no edema, no calf tenderness DP pulses intact Skin: warm, dry, intact. Right leg is wrapped with Farhan bandage which is clean no signs of bleeding Neuro: Alert and oriented x4. Sensation light touch intact. Cranial nerves 2- 12 is intact. Not aphasic, gait is steady, rapid hand movements intact, finger- to-nose intact, Psych: Patient's affect is normal - Assessment and Plan (1) Diabetic foot ulcer associated with diabetes mellitus due to underlying condition Current Visit: Yes Status: Acute Assessment and Plan: Status post incision and drainage right foot, debridement of bone 3rd metatarsal and proximal phalanx on 11/07 ESR 46 increased to 75 on 11/07 CRP 57 increased to 164 on 11/07 CPK within normal limit Lactic acid within normal limit on 11/07/17- leukocytosis, has had fever spikes through 11/06/17- resolved has been afebrile for 24 hours, leukocytosis resolved on 11/08 Associated to neuropathic state. Was treated with vancomycin, one dose of clindamycin-now stopped We will continue IV Zosyn ID recommendations appreciated MRI ordered on 11/06- early osteomyelitis - full report below 2x wound cx sent by podiatry 11/04 strep agalactiae, Escherichia coli and citrobacter koseri bcx sent 11/03-NGTD biopsy from OR sent on 11/07/17 Wound care as per podiatry wound care consulted There is also evidence of onychomycosis with interphalangeal skin breakdown which are associated factors that act as ports of entry. PT consult SW consult (2) Cellulitis Current Visit: Yes Status: Acute Assessment and Plan: Secondary to above Management as above (3) Sepsis affecting skin Current Visit: Yes Status: Resolved Assessment and Plan: Evidenced by leukocytosis 15.8 and tachycardia 104. secondary to above Lactate wnl. management as per above resolved but he became febrile through 11/06/17 with leukocytosis 11 on 11/07 currently Afebrile, hemodynamically stable and leukocytosis resolved as of 11/08 ID on board (4) Diabetes mellitus Current Visit: Yes Status: Acute Assessment and Plan: blood glucose is uncontrolled ?secondary to infection but he does reports that at times his blood glucose is being taken while he is eating - will discuss with nursing staff insulin sliding scale will change to medium dose sliding scale levemir 10 mg BID he was counseled on nutrition and importance of compliance to medications uncontrolled A1c 8.9 Diabetic education. (5) Hypertension Current Visit: Yes Status: Chronic Assessment and Plan: Uncontrolled. lisinopril to 30 mg Qday Added amlodipine 5 mg Qday IVF discontinued will continue to follow BP and titrate medications (6) Obesity (BMI 30-39.9) Current Visit: Yes Status: Chronic Assessment and Plan: nutrition consultation diet and exercise advised. (7) DVT prophylaxis Current Visit: Yes Status: Acute Assessment and Plan: SubQ heparin - Time Spent with Patient Total time spent is greater than 50% in coordination of care (as documented) at patient's floor/unit and/or counseling patient: Internal Medicine: Result - Labs CBC & Chem 7: 11/08/17 04:56 11/08/17 04:56 Labs: Short CBC 11/08/17 Range/Units 04:56 WBC 9.9 (4.3-11.1) K/mcL Hgb 12.2 L (12.9-16.9) g/dL Hct 36.0 L (37.5-50.1) % Plt Count 222 (140-400) K/mcL BMP 11/08/17 04:56 Sodium 134 L Potassium 4.0 Chloride 100 Carbon Dioxide 24 BUN 13 Creatinine 0.71 Glucose 197 H Calcium 8.1 L - Impressions Impressions Fluoroscopy 11/07/17 00:00 IMPRESSION: Intraprocedural fluoroscopic spot images as above. See separate procedure report for more information. D/ / Frank Clark MD / Frank Clark MD Interpreting Provider: Frank Clark MD - VTE Documentation of Mechanical Device: Intermittent pneumatic compression device Consult Discharge Plan - Plan Referrals: [facility] [Other] Fausto Tomlinson CNP [Primary Care Provider] - (1) Diabetic foot ulcer associated with diabetes mellitus due to underlying condition Qualifiers: Diabetic foot ulcer location: midfoot Laterality: right Non-pressure ulcer stage: with other severity Qualified Code(s): E08.621 - Diabetes mellitus due to underlying condition with foot ulcer; L97.418 - Non-pressure chronic ulcer of right heel and midfoot with other specified severity (2) Cellulitis Qualifiers: Site of cellulitis: extremity Site of cellulitis of extremity: lower extremity Laterality: right Qualified Code(s): L03.115 - Cellulitis of right lower limb (4) Diabetes mellitus Qualifiers: Diabetes mellitus type: type 2 Diabetes mellitus intermediate insulin use: without long term care pharmacist use Diabetes mellitus complication status: with skin complications Diabetes mellitus complication detail: with foot ulcer Qualified Code(s): E11.621 - Type 2 diabetes mellitus with foot ulcer; L97.509 - Non-pressure chronic ulcer of other part of unspecified foot with unspecified severity (5) Hypertension Qualifiers: Hypertension type: essential hypertension Qualified Code(s): I10 - Essential (primary) hypertension
[2017-11-08] MEDS: amLODIPine 5 MG TABLET PO SCH (10:06)
--- NOTE | 2017-11-08 12:45 | Infectious Disease Progress No ---
Date of Encounter: 11/08/17 Time of Encounter: 11:05 - Assessment and Plan (1) Sepsis affecting skin Current Visit: Yes Status: Resolved The patient had 2 sirs criteria on admission. Likely secondary to right foot osteomyelitis. Improved. White blood cell count has normalized. Tachycardia resolved. Afebrile overnight. Blood cultures obtained 11/03/17 are no growth to date 2 sets. (2) Osteomyelitis of right foot Current Visit: Yes Status: Acute Location: Right foot. Causative organism: Likely Escherichia coli, Citrobacter, and group B strep per previous wound cultures. Likely secondary to diabetic foot ulcer. X-ray and CT scan were negative for osteomyelitis. The patient had progression of symptoms and underwent an MRI that showed early osteomyelitis, but no abscess or necrotizing fasciitis. Podiatry consult. Status post I&D of the right foot with debridement of the third metatarsal and proximal phalanx 11/07/[address] Kline. Operative note reviewed. Intraoperative cultures were obtained and are pending. Pathology is pending. CK level normal at 64. Postoperative ESR 75, CRP 164. Continue Zosyn 3.375 g IV every 8 hours. Duration of treatment depends on the clinical picture, but likely 6 weeks of IV antibiotics. Monitor renal function of her drug toxicity and dose adjust antibiotics. Await cultures. De-escalate if/when able. media services coordinator to assist with discharge planning. Consult vascular access team once final antibiotic regimen is determined. Further recommendations from the ID team pending additional clinical outcomes and culture results. Qualifiers: Osteomyelitis type: other acute Qualified Code(s): M86.171 - Other acute osteomyelitis, right ankle and foot (3) Cellulitis Current Visit: Yes Status: Acute Location: Right foot. Causative organism: Likely Citrobacter, group B strep, and Escherichia coli. Likely secondary to diabetic foot ulcer. Clinically worse based on previous skin markings. MRI was negative for necrotizing fasciitis. CK level was normal. Continue antibiotics as above. Podiatry consult to assist with management. Qualifiers: Site of cellulitis: extremity Site of cellulitis of extremity: lower extremity Laterality: right Qualified Code(s): L03.115 - Cellulitis of right lower limb (4) Foot ulcer due to secondary DM Current Visit: Yes Status: Acute Location: Plantar aspect of the right foot. Etiology: Unclear. Patient denies known trauma, but states he often walks around barefoot and has peripheral neuropathy. Podiatry consult and following. Wound care per the podiatry team. (5) Diabetes mellitus Current Visit: Yes Status: Acute Uncontrolled. Hemoglobin A1c 8.9%. Recommend aggressive glucose monitoring and control to promote wound healing and prevent further infection. Management per the primary team. Qualifiers: Diabetes mellitus type: type 2 Diabetes mellitus rat exterminator insulin use: without usp use Diabetes mellitus complication status: with skin complications Diabetes mellitus complication detail: with foot ulcer Qualified Code(s): E11.621 - Type 2 diabetes mellitus with foot ulcer; L97.509 - Non-pressure chronic ulcer of other part of unspecified foot with unspecified severity (6) Hypertension Current Visit: Yes Status: Chronic Qualifiers: Hypertension type: essential hypertension Qualified Code(s): I10 - Essential (primary) hypertension (7) Obesity (BMI 30-39.9) Current Visit: Yes Status: Chronic - Subjective Interval history: Patient seen and examined. No acute events noted overnight. Status post I&D of the right foot with debridement of the third metatarsal and proximal phalanx by Dr. Kline. Patient states overall he feels well. He denies any fevers or chills or rigors. Denies any chest pain, shortness of breath, or cough. Denies any nausea, vomiting, diarrhea, constipation. Reports his last bowel movement was this morning. Denies any abdominal pain, appetite changes, or urinary complaints. Continues to complain of pain in the right foot, but states that overall does feel better. Denies any oral thrush or new skin rashes. Infect Dis PN-Objective Data - Labs CBC & Chem 7: 11/08/17 04:56 11/08/17 04:56 Exam - Constitutional Vitals: Temp Pulse Resp BP Pulse Ox 98.5 F 81 12 160/97 95 11/08/17 12:05 11/08/17 12:05 11/08/17 12:05 11/08/17 12:05 11/08/17 12:05 General appearance: cooperative, no acute distress, obese - Head Head exam: Present: atraumatic, normal inspection, normocephalic - Eye Eye exam: Present: EOMI, normal appearance, PERRL Pupils: Present: normal accommodation - ENT ENT exam: Present: mucous membranes moist - Neck Neck exam: Present: normal inspection - Respiratory Respiratory exam: Present: CTAB. Absent: rales, respiratory distress, rhonchi, wheezes - Cardiovascular Cardiovascular exam: Present: RRR, +S1, +S2 - GI/Abdominal GI/Abdominal exam: Present: distended (obese), normal bowel sounds, soft. Absent: tenderness - Extremities Exam Extremities exam: Present: pedal edema (1+ right lower extremity), tenderness ( Right foot) Additional comments: Right foot postoperative dressing is intact. Small amount of old bloody drainage noted on the underlying cause. - Neurological Exam Neurological exam: Present: alert, oriented X3, no focal deficits - Psychiatric Psychiatric exam: Present: normal affect, normal mood - Skin Skin exam: Present: dry, intact, normal color, warm - VTE Documentation of Mechanical Device: Intermittent pneumatic compression device Consult Discharge Plan - Plan Referrals: [facility] [Other] Fausto Tomlinson, LEGAL SECRETARY RECEPTIONIST [Primary Care Provider] - - Attending Attestation I examined this patient and my medical decision-making was reviewed with the Resident Physician. I agree with the documented findings, disposition and treatment plan as described except to the extent set forth below.
--- NOTE | 2017-11-08 12:54 | Podiatry Progress Note ---
Date of Encounter: 11/08/17 Time of Encounter: 07:00 - Assessment and Plan (1) Foot ulcer due to secondary DM Current Visit: Yes Status: Acute (2) Cellulitis Current Visit: Yes Status: Acute Qualifiers: Site of cellulitis: extremity Site of cellulitis of extremity: lower extremity Laterality: right Qualified Code(s): L03.115 - Cellulitis of right lower limb Code(s): L03.90 - Cellulitis, unspecified (3) Chronic ulcer of right foot with fat layer exposed Current Visit: Yes Status: Acute (4) Osteomyelitis of right foot Current Visit: Yes Status: Acute Discussed surgical procedure and course of recovery. Continue with flush packing daily. Follow-up cultures and pathology. Continue IV antibiotics per infectious disease. Ambulate only in Cam Walker boot. Patient will be off work for approximately 6 weeks. Qualifiers: Osteomyelitis type: other acute Qualified Code(s): M86.171 - Other acute osteomyelitis, right ankle and foot Subjective Interval history: s/p incision and drainage right foot and debridement of third metatarsal and proximal phalanx bone. Patient says his foot feels better. He says he can tell the collar is coming back into it. Denies feeling like he experiences fever, chills, nausea, vomiting, shortness of breath, chest pain. Objective - Vital Signs Vital Signs: Vital Signs Temp Pulse Resp BP Pulse Ox 11/08/17 12:05 98.5 F 81 12 160/97 95 Intake and Output 11/07/17 11/08/17 11/08/17 23:59 07:59 15:59 Intake Total 560 / 560 Balance 560 / 560 Intake: IV Fluids 200 / 200 0.9 % Sodium Chloride 1,000 ML 200 / 200 @ 60 mls/hr IVC .[id number] [facility] Rx #:[id number] Oral 360 / 360 Other: Meal Breakfast Percent of Meal Consumed 100% Blood Glucose* 194 - Exam Exam: Well-developed and nourished male in no acute distress [id number] edema of the right foot. Dorsal and plantar retention sutures are intact. There is no purulence expressed. There is decreasing erythema of the dorsal foot. Diminished protective sensation. - Lab Result Diagrams: 11/08/17 04:56 11/08/17 04:56 Labs: Abnormal lab results RBC 4.18 M/mcL (4.19-5.50) L 11/08/17 04:56 Hgb 12.2 g/dL (12.9-16.9) L 11/08/17 04:56 Hct 36.0 % (37.5-50.1) L 11/08/17 04:56 MPV 8.4 fL (9.4-12.4) L 11/08/17 04:56 Monocytes # 1.6 K/mcL (0.0-1.3) H 11/04/17 04:09 ESR 75 mm/hr (0-10) H 11/07/17 15:49 Sodium 134 mEq/L (136-145) L 11/08/17 04:56 Glucose 197 mg/dL (70-105) H 11/08/17 04:56 POC Glucose 176 mg/dL (70-99) H 11/08/17 07:26 Hemoglobin A1c 8.9 % (-5.6) H 11/04/17 04:09 Calcium 8.1 mg/dL (8.6-10.3) L 11/08/17 04:56 AST 10 Units/L (13-39) L 11/04/17 04:09 C-Reactive Protein 164 mg/L (Less than 10) H 11/07/17 15:49 HDL Cholesterol 37 mg/dL (40-59) L 11/04/17 04:09 - VTE Documentation of Mechanical Device: Intermittent pneumatic compression device Consult Discharge Plan - Plan Referrals: [facility] [Other] Fausto Tomlinson, SOHA [Primary Care Provider] -
[2017-11-08] MEDS ORDERED: Aminoglycoside Consult 1 EACH MC ONE (14:30)
[2017-11-09] MEDS: *HR* Heparin 5,000 UNIT/ML VIAL SQ SCH ×3 (05:52→20:44)
[2017-11-09 06:00] LABS: Hematocrit 37.4 % (37.5-50.1); Hemoglobin 12.8 g/dL (12.9-16.9); Mean Corpuscular HGB Conc 34.2 g/dL (31.6-35.5); Mean Corpuscular Volume 84.8 fL (83.0-100.0); Mean Platelet Volume 8.2 fL (9.4-12.4); Platelet Count 244 K/mcL (140-400); Red Blood Count 4.41 M/mcL (4.19-5.50); Red Cell Distribution Width 12.6 % (11.5-14.5)
[2017-11-09 06:23] LABS: BUN/Creatinine Ratio 13 (6-26); Blood Urea Nitrogen 9 mg/dL (6-20); Calcium 8.6 mg/dL (8.6-10.3); Carbon Dioxide 27 mEq/L (23-29); Chloride 99 mEq/L (98-107); Glucose 208 mg/dL (70-105); Osmolality,Calculated 283 (280-300); Potassium 4.1 mEq/L (3.5-5.1); Sodium 134 mEq/L (136-145); eGFR For Non-African Americans > 60 (> 60)
[2017-11-09] MEDS ORDERED: Insulin DETEMIR 100 UNIT/ML X5UNITS SQ SCH (07:30)
[2017-11-09] MEDS: Insulin LISPRO 300 UNITS/3 ML VIAL SQ SCH ×3 (08:23→20:55)
[2017-11-09] MEDS: Insulin DETEMIR 100 UNIT/ML X5UNITS SQ SCH ×2 (08:24→20:43)
[2017-11-09] MEDS: amLODIPine 5 MG TABLET PO SCH (08:24)
[2017-11-09] MEDS: Lisinopril 20 MG TABLET PO SCH (08:24)
[2017-11-09] MEDS: Piperacillin/Tazobactam 3.375 GM in 0.9 % Sodium Chloride Mini Bag 100 ML IVPB SCH ×2 (08:25→15:45)
[2017-11-09] MEDS: *HR* HYDROcodone/Acet 5/325 mg TABLET PO PRN ×2 (08:41→15:49)
--- NOTE | 2017-11-09 11:35 | Podiatry Progress Note ---
Date of Encounter: 11/09/17 Time of Encounter: 10:00 - Assessment and Plan (1) Foot ulcer due to secondary DM Current Visit: Yes Status: Acute encouraged glycemic control. discussed importance of controlling blood sugar for wound healing. (2) Cellulitis Current Visit: Yes Status: Acute wbc and cellulitis improving. did not spike fever. c/w flush pack for now and may change to an alginate in future. f/u cultures and path. discussed current results. antibiotics per infectious disease. Qualifiers: Site of cellulitis: extremity Site of cellulitis of extremity: lower extremity Laterality: right Qualified Code(s): L03.115 - Cellulitis of right lower limb Code(s): L03.90 - Cellulitis, unspecified (3) Chronic ulcer of right foot with fat layer exposed Current Visit: Yes Status: Acute (4) Osteomyelitis of right foot Current Visit: Yes Status: Acute ambulate only in cam walker boot. Qualifiers: Osteomyelitis type: other acute Qualified Code(s): M86.171 - Other acute osteomyelitis, right ankle and foot Subjective Interval history: no problems overnight. says his foot feels better. says he did get up and walk in the boot a little. Objective - Vital Signs Vital Signs: Vital Signs Temp Pulse Resp BP Pulse Ox 11/09/17 07:43 98.2 F 78 14 190/111 96 11/08/17 20:56 98.7 F 90 14 171/103 95 11/08/17 15:52 98.3 F 78 17 156/87 92 11/08/17 14:08 98.1 F 76 16 138/88 97 11/08/17 12:05 98.5 F 81 12 160/97 95 Intake and Output 11/08/17 11/09/17 11/09/17 23:59 07:59 15:59 Intake Total 1040 / 1040 100 / 100 360 / 360 Output Total 0 / 0 Balance 1040 / 1040 100 / 100 360 / 360 Intake: IV Fluids 100 / 100 100 / 100 Zosyn 3.375 GM In 0.9 % Sodium 100 / 100 100 / 100 Chloride (Mini-Bag +) 100 ML @ 25 mls/hr IVPB Q8HR [facility] Rx#: [id number] Oral 940 / 940 0 / 0 360 / 360 Output: Urine 0 / 0 Other: Meal Dinner Breakfast Percent of Meal Consumed 100% 100% # Voids 1 # Bowel Movements 0 Blood Glucose* 231 178 237 - Exam Exam: no purulence expressed. erythema resolving. wounds dorsal, plantar and interdigitally between 3rd and 4th digits - Lab Result Diagrams: 11/09/17 05:34 11/09/17 05:34 Labs: Abnormal lab results Hgb 12.8 g/dL (12.9-16.9) L 11/09/17 05:34 Hct 37.4 % (37.5-50.1) L 11/09/17 05:34 MPV 8.2 fL (9.4-12.4) L 11/09/17 05:34 Monocytes # 1.6 K/mcL (0.0-1.3) H 11/04/17 04:09 ESR 75 mm/hr (0-10) H 11/07/17 15:49 Sodium 134 mEq/L (136-145) L 11/09/17 05:34 Creatinine 0.69 mg/dL (0.70-1.30) L 11/09/17 05:34 Glucose 208 mg/dL (70-105) H 11/09/17 05:34 POC Glucose 231 mg/dL (70-99) H 11/08/17 21:24 Hemoglobin A1c 8.9 % (-5.6) H 11/04/17 04:09 AST 10 Units/L (13-39) L 11/04/17 04:09 C-Reactive Protein 164 mg/L (Less than 10) H 11/07/17 15:49 HDL Cholesterol 37 mg/dL (40-59) L 11/04/17 04:09 Vancomycin Trough 2 mcg/mL (5-10) L 11/08/17 21:03 - VTE Documentation of Mechanical Device: Intermittent pneumatic compression device Consult Discharge Plan - Plan Referrals: [facility] [Other] Fausto Tomlinson, SOHA [Primary Care Provider] -
--- NOTE | 2017-11-09 12:06 | Internal Med Progress Note ---
Hospitalist Progress Note - Encounter Date of Encounter: 11/09/17 Time of Encounter: 12:03 - Subjective Interval History: Patient was seen and examined at bedside, reports that the pain is controlled. Denies any fever chills nausea vomiting diarrhea No overnight events Tolerated by mouth diet, pain is controlled - Exam Vitals: Temp Pulse Resp BP Pulse Ox 98.2 F 78 14 190/111 96 11/09/17 07:43 11/09/17 07:43 11/09/17 07:43 11/09/17 07:43 11/09/17 07:43 Exam: General: Patient is alert, oriented, no acute distress, obese Head: atraumatic, normocephalic, Eye: normal appearance, PERRL, no scleral icterus, no conjunctival injection ENT: mucous membranes moist, normal external ear exam Neck: normal inspection, trachea midline, full ROM, no carotid bruits Chest: normal inspection, symmetric chest rise Respiratory: Good respiratory effort. Bilateral breath sounds are clear without wheezing, crackles, or rhonchi. Cardiovascular: Regular rate and rhythm. s1 and s2 No clicks, rubs, gallops, or murmors. Abdomen: Bowel sounds present normoactive x-4 quadrants. Abdomen is soft, nondistended. no Epigastric tenderness. No guarding or rebound. No organomegaly noted, obese musculoskeletal: Spontaneously moving all extremities. no edema, no calf tenderness DP pulses intact Skin: warm, dry, intact. Right leg is wrapped with Farhan bandage which is clean no signs of bleeding Neuro: Alert and oriented x4. Sensation light touch intact. Cranial nerves 2- 12 is intact. Not aphasic, gait is steady, rapid hand movements intact, finger- to-nose intact, Psych: Patient's affect is normal - Assessment and Plan (1) Diabetic foot ulcer associated with diabetes mellitus due to underlying condition Current Visit: Yes Status: Acute Assessment and Plan: Status post incision and drainage right foot, debridement of bone 3rd metatarsal and proximal phalanx on 11/07 ESR 46 increased to 75 on 11/07 CRP 57 increased to 164 on 11/07 CPK within normal limit Lactic acid within normal limit ambulate only in cam walker boot. on 11/07/17- leukocytosis, has had fever spikes through 11/06/17- resolved has been afebrile for 24 hours, leukocytosis resolved on 11/08 Associated to neuropathic state. Was treated with vancomycin, one dose of clindamycin-now stopped We will continue IV Zosyn ID recommendations appreciated MRI ordered on 11/06- early osteomyelitis - full report below 2x wound cx sent by podiatry 11/04 strep agalactiae, Escherichia coli and citrobacter koseri bcx sent 11/03-NGTD biopsy from OR sent on 11/07/17- gram negative pankaj Wound care as per podiatry wound care consulted There is also evidence of onychomycosis with interphalangeal skin breakdown which are associated factors that act as ports of entry. PT consult SW consult MRI IMPRESSION: Small ulcer underlying the 3rd metatarsophalangeal joint with early osteomyelitis. (2) Cellulitis Current Visit: Yes Status: Acute Assessment and Plan: Secondary to above Management as above (3) Sepsis affecting skin Current Visit: Yes Status: Resolved Assessment and Plan: Evidenced by leukocytosis 15.8 and tachycardia 104. secondary to above Lactate wnl. management as per above resolved but he became febrile through 11/06/17 with leukocytosis 11 on 11/07 currently Afebrile, hemodynamically stable and leukocytosis resolved as of 11/08 ID on board (4) Diabetes mellitus Current Visit: Yes Status: Acute Assessment and Plan: blood glucose is uncontrolled ?secondary to infection but he does reports that at times his blood glucose is being taken while he is eating - will discuss with nursing staff insulin sliding scale will change to high dose sliding scale levemir increased 15 mg BID he was counseled on nutrition and importance of compliance to medications uncontrolled A1c 8.9 Diabetic education. (5) Hypertension Current Visit: Yes Status: Chronic Assessment and Plan: Uncontrolled. lisinopril to 40 mg Qday Added amlodipine 10 mg Qday will continue to follow BP and titrate medications (6) Obesity (BMI 30-39.9) Current Visit: Yes Status: Chronic Assessment and Plan: nutrition consultation diet and exercise advised. (7) DVT prophylaxis Current Visit: Yes Status: Acute Assessment and Plan: SubQ heparin - Time Spent with Patient Total time spent is greater than 50% in coordination of care (as documented) at patient's floor/unit and/or counseling patient: Internal Medicine: Result - Labs CBC & Chem 7: 11/09/17 05:34 11/09/17 05:34 Labs: Short CBC 11/09/17 Range/Units 05:34 WBC 7.0 (4.3-11.1) K/mcL Hgb 12.8 L (12.9-16.9) g/dL Hct 37.4 L (37.5-50.1) % Plt Count 244 (140-400) K/mcL [facility] 11/09/17 05:34 Sodium 134 L Potassium 4.1 Chloride 99 Carbon Dioxide 27 BUN 9 Creatinine 0.69 L Glucose 208 H Calcium 8.6 - VTE Documentation of Mechanical Device: Intermittent pneumatic compression device Consult Discharge Plan - Plan Referrals: [facility]LEY [Other] Fausto Tomlinson, SOHA [Primary Care Provider] - (1) Diabetic foot ulcer associated with diabetes mellitus due to underlying condition Qualifiers: Diabetic foot ulcer location: midfoot Laterality: right Non-pressure ulcer stage: with other severity Qualified Code(s): E08.621 - Diabetes mellitus due to underlying condition with foot ulcer; L97.418 - Non-pressure chronic ulcer of right heel and midfoot with other specified severity (2) Cellulitis Qualifiers: Site of cellulitis: extremity Site of cellulitis of extremity: lower extremity Laterality: right Qualified Code(s): L03.115 - Cellulitis of right lower limb (4) Diabetes mellitus Qualifiers: Diabetes mellitus type: type 2 Diabetes mellitus nursing home insulin use: without nursing home use Diabetes mellitus complication status: with skin complications Diabetes mellitus complication detail: with foot ulcer Qualified Code(s): E11.621 - Type 2 diabetes mellitus with foot ulcer; L97.509 - Non-pressure chronic ulcer of other part of unspecified foot with unspecified severity (5) Hypertension Qualifiers: Hypertension type: essential hypertension Qualified Code(s): I10 - Essential (primary) hypertension
[2017-11-09] MEDS ORDERED: amLODIPine 5 MG TABLET PO ONE (12:07)
[2017-11-10] MEDS: Piperacillin/Tazobactam 3.375 GM in 0.9 % Sodium Chloride Mini Bag 100 ML IVPB SCH ×3 (00:43→16:31)
[2017-11-10] MEDS: *HR* HYDROcodone/Acet 5/325 mg TABLET PO PRN ×2 (04:41→19:52)
[2017-11-10] MEDS: *HR* Heparin 5,000 UNIT/ML VIAL SQ SCH ×3 (05:15→21:46)
[2017-11-10] MEDS: Furosemide 40 MG TABLET PO SCH (07:57)
[2017-11-10] MEDS: amLODIPine 5 MG TABLET PO SCH (07:57)
[2017-11-10] MEDS: Lisinopril 20 MG TABLET PO SCH (07:57)
[2017-11-10] MEDS: Insulin LISPRO 300 UNITS/3 ML VIAL SQ SCH ×4 (08:12→21:49)
[2017-11-10] MEDS: Insulin DETEMIR 100 UNIT/ML X5UNITS SQ SCH ×3 (08:13→21:46)
--- NOTE | 2017-11-10 12:15 | Internal Med Progress Note ---
Hospitalist Progress Note - Encounter Date of Encounter: 11/10/17 Time of Encounter: 08:00 - Subjective Interval History: Patient was seen and examined at bedside, reports that the pain is controlled. reports that he has a itchy lesion on the left foot that appeared yesterday Denies any fever chills nausea vomiting diarrhea No overnight events Tolerated by mouth diet, pain is controlled - Exam Vitals: Temp Pulse Resp BP Pulse Ox 98.1 F 78 18 177/111 97 11/10/17 11:14 11/10/17 11:14 11/10/17 11:14 11/10/17 11:14 11/10/17 11:14 Exam: General: Patient is alert, oriented, no acute distress, obese Head: atraumatic, normocephalic, Eye: normal appearance, PERRL, no scleral icterus, no conjunctival injection ENT: mucous membranes moist, normal external ear exam Neck: normal inspection, trachea midline, full ROM, no carotid bruits Chest: normal inspection, symmetric chest rise Respiratory: Good respiratory effort. Bilateral breath sounds are clear without wheezing, crackles, or rhonchi. Cardiovascular: Regular rate and rhythm. s1 and s2 No clicks, rubs, gallops, or murmors. Abdomen: Bowel sounds present normoactive x-4 quadrants. Abdomen is soft, nondistended. no Epigastric tenderness. No guarding or rebound. No organomegaly noted, obese musculoskeletal: Spontaneously moving all extremities. no edema, no calf tenderness DP pulses intact Skin: warm, dry, intact. Right leg is wrapped with Farhan bandage which is clean no signs of bleeding Neuro: Alert and oriented x4. Sensation light touch intact. Cranial nerves 2- 12 is intact. Not aphasic, gait is steady, rapid hand movements intact, finger- to-nose intact, Psych: Patient's affect is normal - Assessment and Plan (1) Diabetic foot ulcer associated with diabetes mellitus due to underlying condition Current Visit: Yes Status: Acute Assessment and Plan: Status post incision and drainage right foot, debridement of bone 3rd metatarsal and proximal phalanx on 11/07 ESR 46 increased to 75 on 11/07 CRP 57 increased to 164 on 11/07 CPK within normal limit Lactic acid within normal limit ambulate only in cam walker boot. on 11/07/17- leukocytosis, has had fever spikes through 11/06/17- resolved has been afebrile for 24 hours, leukocytosis resolved on 11/08 Associated to neuropathic state. Was treated with vancomycin, one dose of clindamycin-now stopped We will continue IV Zosyn ID recommendations appreciated MRI ordered on 11/06- early osteomyelitis - full report below 2x wound cx sent by podiatry 11/04 strep agalactiae, Escherichia coli and citrobacter koseri bcx sent 11/03-NGTD biopsy from OR sent on 11/07/17- citrobacter koseri Wound care as per podiatry wound care consulted There is also evidence of onychomycosis with interphalangeal skin breakdown which are associated factors that act as ports of entry. PT consult SW consult MRI IMPRESSION: Small ulcer underlying the 3rd metatarsophalangeal joint with early osteomyelitis. (2) Cellulitis Current Visit: Yes Status: Acute Assessment and Plan: Secondary to above Management as above (3) Sepsis affecting skin Current Visit: Yes Status: Resolved Assessment and Plan: Evidenced by leukocytosis 15.8 and tachycardia 104. secondary to above Lactate wnl. management as per above resolved but he became febrile through 11/06/17 with leukocytosis 11 on 11/07 currently Afebrile, hemodynamically stable and leukocytosis resolved as of 11/08 ID on board (4) Diabetes mellitus Current Visit: Yes Status: Acute Assessment and Plan: blood glucose is uncontrolled ?secondary to infection high dose sliding scale levemir increased 20 mg BID he was counseled on nutrition and importance of compliance to medications uncontrolled A1c 8.9 Diabetic education. (5) Hypertension Current Visit: Yes Status: Chronic Assessment and Plan: Uncontrolled. lisinopril to 40 mg Qday amlodipine 10 mg Qday Added lasix 40 mg qday hydralazine IVP PRN for BP >160/100 will continue to follow BP and titrate medications (6) Obesity (BMI 30-39.9) Current Visit: Yes Status: Chronic Assessment and Plan: nutrition consultation diet and exercise advised. (7) Tinea corporis Current Visit: Yes Status: Acute Assessment and Plan: ketoconazole 2% cream BID (8) DVT prophylaxis Current Visit: Yes Status: Acute Assessment and Plan: SubQ heparin - Time Spent with Patient Total time spent is greater than 50% in coordination of care (as documented) at patient's floor/unit and/or counseling patient: Internal Medicine: Result - Labs CBC & Chem 7: 11/09/17 05:34 11/09/17 05:34 - VTE Documentation of Mechanical Device: Intermittent pneumatic compression device Consult Discharge Plan - Plan Referrals: [facility] [Other] Fausto Tomlinson CNP [Primary Care Provider] - (1) Diabetic foot ulcer associated with diabetes mellitus due to underlying condition Qualifiers: Diabetic foot ulcer location: midfoot Laterality: right Non-pressure ulcer stage: with other severity Qualified Code(s): E08.621 - Diabetes mellitus due to underlying condition with foot ulcer; L97.418 - Non-pressure chronic ulcer of right heel and midfoot with other specified severity (2) Cellulitis Qualifiers: Site of cellulitis: extremity Site of cellulitis of extremity: lower extremity Laterality: right Qualified Code(s): L03.115 - Cellulitis of right lower limb (4) Diabetes mellitus Qualifiers: Diabetes mellitus type: type 2 Diabetes mellitus correction insulin use: without correction use Diabetes mellitus complication status: with skin complications Diabetes mellitus complication detail: with foot ulcer Qualified Code(s): E11.621 - Type 2 diabetes mellitus with foot ulcer; L97.509 - Non-pressure chronic ulcer of other part of unspecified foot with unspecified severity (5) Hypertension Qualifiers: Hypertension type: essential hypertension Qualified Code(s): I10 - Essential (primary) hypertension
[2017-11-10] MEDS: Ketoconazole 2% CRM 15 GM TUBE TP SCH ×2 (13:30→21:46)
[2017-11-10] MEDS: traMADol 50 MG TABLET PO PRN (16:43)
[2017-11-11] MEDS: Piperacillin/Tazobactam 3.375 GM in 0.9 % Sodium Chloride Mini Bag 100 ML IVPB SCH ×2 (00:19→08:01)
[2017-11-11] MEDS: *HR* Heparin 5,000 UNIT/ML VIAL SQ SCH ×3 (05:14→21:25)
[2017-11-11 07:41] LABS: Basophils # 0.1 K/mcL (0.0-0.2); Basophils % 0.9 %; Eosinophils # 0.2 K/mcL (0.0-0.6); Eosinophils % 3.1 %; Hematocrit 39.8 % (37.5-50.1); Hemoglobin 13.4 g/dL (12.9-16.9); Immature Granulocytes % 2.8 % (0-4); Lymphocytes # 1.9 K/mcL (0.6-4.6); Lymphocytes % 27.9 %; Mean Corpuscular HGB Conc 33.7 g/dL (31.6-35.5); Mean Corpuscular Hemoglobin 28.9 pg (28.0-33.3); Mean Platelet Volume 7.8 fL (9.4-12.4); Monocytes # 0.9 K/mcL (0.0-1.3); Monocytes % 13.6 %; Neutrophils # 3.5 K/mcL (1.6-8.9); Platelet Count 265 K/mcL (140-400); Red Blood Count 4.63 M/mcL (4.19-5.50); Red Cell Distribution Width 12.8 % (11.5-14.5); Segmented Neutrophils % 51.7 %
[2017-11-11 07:51] LABS: BUN/Creatinine Ratio 14 (6-26); Blood Urea Nitrogen 11 mg/dL (6-20); Calcium 9.1 mg/dL (8.6-10.3); Carbon Dioxide 31 mEq/L (23-29); Chloride 96 mEq/L (98-107); Glucose 159 mg/dL (70-105); Osmolality,Calculated 281 (280-300); Sodium 134 mEq/L (136-145); eGFR For Non-African Americans > 60 (> 60)
[2017-11-11] MEDS: Insulin LISPRO 300 UNITS/3 ML VIAL SQ SCH ×4 (07:59→21:21)
[2017-11-11] MEDS: Insulin DETEMIR 100 UNIT/ML X5UNITS SQ SCH ×2 (08:00→21:22)
[2017-11-11] MEDS: Furosemide 40 MG TABLET PO SCH (08:04)
[2017-11-11] MEDS: amLODIPine 5 MG TABLET PO SCH (08:05)
[2017-11-11] MEDS: Ketoconazole 2% CRM 15 GM TUBE TP SCH ×2 (08:05→21:22)
[2017-11-11] MEDS: Lisinopril 20 MG TABLET PO SCH (08:06)
[2017-11-11 08:33] LABS: Platelet Estimate Normal (Normal)
[2017-11-11 08:34] LABS: Reactive Lymphocytes Present (Not Present)
[2017-11-11] MEDS ORDERED: Lidocaine -MPF 1% 5 ML AMPUL INFILT ONE (14:28)
--- NOTE | 2017-11-11 15:47 | Infectious Disease Progress No ---
Date of Encounter: 11/11/17 Time of Encounter: 15:41 - Assessment and Plan (1) Sepsis affecting skin Current Visit: Yes Status: Resolved The patient had 2 sirs criteria on admission. Likely secondary to right foot osteomyelitis. Improved. White blood cell count has normalized. Tachycardia resolved. Afebrile. Blood cultures obtained 11/03/17 are negative 2 sets. (2) Osteomyelitis of right foot Current Visit: Yes Status: Acute Location: Right foot. Causative organism: Likely Escherichia coli, Citrobacter, and group B strep and anaerobes per previous wound cultures. Likely secondary to diabetic foot ulcer. X-ray and CT scan were negative for osteomyelitis. The patient had progression of symptoms and underwent an MRI that showed early osteomyelitis, but no abscess or necrotizing fasciitis. Podiatry consult. Status post I&D of the right foot with debridement of the third metatarsal and proximal phalanx 11/07/[address] Kline. Operative note reviewed. Intraoperative cultures were obtained and are positive for Citrobacter koseri and GBS. Pathology is negative for OM. CK level normal at 64. Postoperative ESR 75, CRP 164. Discontinue Zosyn. Start Rocephin 2 grams IV daily. Start flagyl 500mg PO TID. Duration of treatment depends on the clinical picture. Although the pathology is negative for osteomyelitis, imaging was positive for possible early ostia. Given the extent of the infection, we will likely treat for 4-6 weeks. We will see the patient in the office in 2 weeks and base further duration of treatment on how the patient is doing clinically and his inflammatory markers. Monitor renal function of her drug toxicity and dose adjust antibiotics. Wound care and activity restrictions per the podiatry team. patient financial services coordinator to assist with discharge planning. Consult vascular access team to switch out Powerglide to Midline. Will need weekly CBC, BUNs/creatinine, ESR, and CRP. Will need weekly midline care per protocol. Follow up with ID 11/28/17 at 0900 Qualifiers: Osteomyelitis type: other acute Qualified Code(s): M86.171 - Other acute osteomyelitis, right ankle and foot (3) Cellulitis Current Visit: Yes Status: Acute Location: Right foot. Causative organism: Likely Citrobacter, group B strep, and Escherichia coli. Likely secondary to diabetic foot ulcer. Clinically worse based on previous skin markings. MRI was negative for necrotizing fasciitis. CK level was normal. Continue antibiotics as above. Podiatry consult to assist with management. Qualifiers: Site of cellulitis: extremity Site of cellulitis of extremity: lower extremity Laterality: right Qualified Code(s): L03.115 - Cellulitis of right lower limb (4) Foot ulcer due to secondary DM Current Visit: Yes Status: Acute Location: Plantar aspect of the right foot. Etiology: Unclear. Patient denies known trauma, but states he often walks around barefoot and has peripheral neuropathy. Podiatry consult and following. Wound care per the podiatry team. (5) Diabetes mellitus Current Visit: Yes Status: Acute Uncontrolled. Hemoglobin A1c 8.9%. Recommend aggressive glucose monitoring and control to promote wound healing and prevent further infection. Management per the primary team. Qualifiers: Diabetes mellitus type: type 2 Diabetes mellitus manager terminal insulin use: without manager terminal use Diabetes mellitus complication status: with skin complications Diabetes mellitus complication detail: with foot ulcer Qualified Code(s): E11.621 - Type 2 diabetes mellitus with foot ulcer; L97.509 - Non-pressure chronic ulcer of other part of unspecified foot with unspecified severity (6) Hypertension Current Visit: Yes Status: Chronic Qualifiers: Hypertension type: essential hypertension Qualified Code(s): I10 - Essential (primary) hypertension (7) Obesity (BMI 30-39.9) Current Visit: Yes Status: Chronic - Subjective Interval history: Patient seen and examined. No acute events noted overnight. Status post I&D of the right foot with debridement of the third metatarsal and proximal phalanx by Dr. Bess 11/07/17. Patient states overall he feels well. He denies any fevers or chills or rigors. Denies any chest pain, shortness of breath, or cough. Denies any nausea, vomiting, diarrhea, constipation. Reports his last bowel movement was this morning. Denies any abdominal pain, appetite changes, or urinary complaints. Continues to complain of pain in the right foot, but states that overall does feel better. Denies any oral thrush or new skin rashes. Infect Dis PN-Objective Data - Labs CBC & Chem 7: 11/12/17 04:21 11/12/17 04:21 Labs: Laboratory Results - last 24 hr 11/10/17 11/10/17 11/10/17 11:45 13:11 16:19 WBC RBC Hgb Hct MCV MCH MCHC RDW Plt Count MPV Immature Gran % Seg Neutrophils % Lymphocytes % Monocytes % Eosinophils % Basophils % Neutrophils # Lymphocytes # Monocytes # Eosinophils # Basophils # Reactive Lymphocytes Platelet Estimate Sodium Potassium Chloride Carbon Dioxide BUN Creatinine Est GFR ( Amer) Est GFR (Non-Af Amer) BUN/Creatinine Ratio Glucose POC Glucose 212 H 231 H Calculated Osmolality Calcium 25-OH Vitamin D Total 17 L 11/10/17 11/11/17 11/11/17 21:18 06:51 06:51 WBC 6.8 RBC 4.63 Hgb 13.4 Hct 39.8 MCV 86.0 MCH 28.9 MCHC 33.7 RDW 12.8 Plt Count 265 MPV 7.8 L Immature Gran % 2.8 Seg Neutrophils % 51.7 Lymphocytes % 27.9 Monocytes % 13.6 Eosinophils % 3.1 Basophils % 0.9 Neutrophils # 3.5 Lymphocytes # 1.9 Monocytes # 0.9 Eosinophils # 0.2 Basophils # 0.1 Reactive Lymphocytes Present A Platelet Estimate Normal Sodium 134 L Potassium 4.0 Chloride 96 L Carbon Dioxide 31 H BUN 11 Creatinine 0.80 Est GFR ( Amer) > 60 Est GFR (Non-Af Amer) > 60 BUN/Creatinine Ratio 14 Glucose 159 H POC Glucose 142 H Calculated Osmolality 281 Calcium 9.1 25-OH Vitamin D Total 11/11/17 11/11/17 07:43 11:52 WBC RBC Hgb Hct MCV MCH MCHC RDW Plt Count MPV Immature Gran % Seg Neutrophils % Lymphocytes % Monocytes % Eosinophils % Basophils % Neutrophils # Lymphocytes # Monocytes # Eosinophils # Basophils # Reactive Lymphocytes Platelet Estimate Sodium Potassium Chloride Carbon Dioxide BUN Creatinine Est GFR ( Amer) Est GFR (Non-Af Amer) BUN/Creatinine Ratio Glucose POC Glucose 155 H 244 H Calculated Osmolality Calcium 25-OH Vitamin D Total Exam - Constitutional Vitals: Temp Pulse Resp BP Pulse Ox 97.8 F 83 14 155/97 95 11/11/17 10:31 11/11/17 10:31 11/11/17 10:31 11/11/17 10:31 11/11/17 10:31 General appearance: cooperative, no acute distress, obese - Head Head exam: Present: atraumatic, normal inspection, normocephalic - Eye Eye exam: Present: EOMI, normal appearance, PERRL Pupils: Present: normal accommodation - ENT ENT exam: Present: mucous membranes moist - Neck Neck exam: Present: normal inspection - Respiratory Respiratory exam: Present: CTAB. Absent: rales, respiratory distress, rhonchi, wheezes - Cardiovascular Cardiovascular exam: Present: RRR, +S1, +S2 - GI/Abdominal GI/Abdominal exam: Present: distended (obese), normal bowel sounds, soft. Absent: tenderness - Extremities Exam Extremities exam: Present: tenderness (right foot). Absent: pedal edema Additional comments: Right foot dressing C/D/I. - Neurological Exam Neurological exam: Present: alert, oriented X3, no focal deficits - Psychiatric Psychiatric exam: Present: normal affect, normal mood - Skin Skin exam: Present: dry, intact, normal color, warm - Additional findings Additional findings: Powerglide noted to the LUE with transparent dressing C/D/I. - VTE Documentation of Mechanical Device: Intermittent pneumatic compression device Consult Discharge Plan - Plan Referrals: Fausto Tomlinson CNP [Primary Care Provider] - 11/14/17 1:30 pm Jabari Pritchett DPM [Partnered Physician] - Maria E Roman CNP [Advanced Practice Nurse] - (Family Physician will need to make referral for endocrinology appointment with this office. Thank you) Anca Choe CNP [Advanced Practice Nurse] - 11/28/17 9:00 am Prescriptions: cefTRIAXone [Rocephin] 2,000 mg IVPB DAILY 35 Days #35 vial metroNIDAZOLE [Metronidazole] 500 mg PO Q8H 35 Days #105 tablet - Attending Attestation I examined this patient and my medical decision-making was reviewed with the Resident Physician. I agree with the documented findings, disposition and treatment plan as described except to the extent set forth below.
[2017-11-11] MEDS: metroNIDAZOLE 500 MG TABLET PO SCH ×2 (15:51→21:21)
[2017-11-11] MEDS: cefTRIAXone 2,000 MG in Water for inj. (sterile) 20 ML 20 ML IVP SCH (15:52)
--- NOTE | 2017-11-11 16:27 | Internal Med Progress Note ---
Hospitalist Progress Note - Encounter Date of Encounter: 11/11/17 Time of Encounter: 13:00 - Subjective Interval History: Patient was seen and examined at bedside, reports that the pain is controlled. reports that he has a itchy lesion on the left foot that appeared yesterday is feeling much better after topical cream when asked if he was eating chocolate bars and if that is nga reason for his uncontrolled blood glucose he reports "sometimes" Denies any fever chills nausea vomiting diarrhea No overnight events Tolerated by mouth diet, pain is controlled - Exam Vitals: Temp Pulse Resp BP Pulse Ox 98.1 F 76 17 151/89 96 11/11/17 15:48 11/11/17 15:48 11/11/17 15:48 11/11/17 15:48 11/11/17 15:48 Exam: General: Patient is alert, oriented, no acute distress, obese Head: atraumatic, normocephalic, Eye: normal appearance, PERRL, no scleral icterus, no conjunctival injection ENT: mucous membranes moist, normal external ear exam Neck: normal inspection, trachea midline, full ROM, no carotid bruits Chest: normal inspection, symmetric chest rise Respiratory: Good respiratory effort. Bilateral breath sounds are clear without wheezing, crackles, or rhonchi. Cardiovascular: Regular rate and rhythm. s1 and s2 No clicks, rubs, gallops, or murmors. Abdomen: Bowel sounds present normoactive x-4 quadrants. Abdomen is soft, nondistended. no Epigastric tenderness. No guarding or rebound. No organomegaly noted, obese musculoskeletal: Spontaneously moving all extremities. no edema, no calf tenderness Skin: warm, dry, intact. Right leg is wrapped with Farhan bandage which is clean no signs of bleeding Neuro: Alert and oriented x4. Sensation light touch intact. Cranial nerves 2- 12 is intact. Not aphasic, gait is steady, rapid hand movements intact, finger- to-nose intact, Psych: Patient's affect is normal - Assessment and Plan (1) Diabetic foot ulcer associated with diabetes mellitus due to underlying condition Current Visit: Yes Status: Acute Assessment and Plan: Status post incision and drainage right foot, debridement of bone 3rd metatarsal and proximal phalanx on 11/07 ESR 46 increased to 75 on 11/07 CRP 57 increased to 164 on 11/07 CPK within normal limit Lactic acid within normal limit ambulate only in cam walker boot. on 11/07/17- leukocytosis, has had fever spikes through 11/06/17- resolved has been afebrile for 24 hours, leukocytosis resolved on 11/08 Was treated with vancomycin, one dose of clindamycin-now stopped IV zosyn was discontinued on 11/11/17 was started on IV ceftriaxone and oral metronidazole to continue for an addition 5 weeks Line team was consulted for mid line placement ABx prescription was provided to the SW Will need weekly CBC, BUNs/creatinine, ESR, and CRP. Will need weekly midline care per protocol. Follow up with ID 11/28/17 at 0900 ID recommendations appreciated MRI ordered on 11/06- early osteomyelitis - full report below 2x wound cx sent by podiatry 11/04 strep agalactiae, Escherichia coli and citrobacter koseri bcx sent 11/03-NGTD biopsy from OR sent on 11/07/17- citrobacter koseri Wound care as per podiatry wound care consulted There is also evidence of onychomycosis with interphalangeal skin breakdown which are associated factors that act as ports of entry. PT consult SW consult MRI IMPRESSION: Small ulcer underlying the 3rd metatarsophalangeal joint with early osteomyelitis. (2) Cellulitis Current Visit: Yes Status: Acute Assessment and Plan: Secondary to above Management as above (3) Sepsis affecting skin Current Visit: Yes Status: Resolved Assessment and Plan: Evidenced by leukocytosis 15.8 and tachycardia 104. secondary to above Lactate wnl. management as per above resolved but he became febrile through 11/06/17 with leukocytosis 11 on 11/07 currently Afebrile, hemodynamically stable and leukocytosis resolved as of 11/08 ID on board (4) Diabetes mellitus Current Visit: Yes Status: Acute Assessment and Plan: blood glucose is uncontrolled ?secondary to infection was seen by nurse with angelina in nga room does report that he has been eating "snacks" high dose sliding scale levemir increased 20 mg BID he was counseled on nutrition and importance of compliance to medications uncontrolled A1c 8.9 Diabetic education. (5) Hypertension Current Visit: Yes Status: Chronic Assessment and Plan: Uncontrolled but improving lisinopril to 40 mg Qday amlodipine 10 mg Qday lasix 40 mg qday hydralazine IVP PRN for BP >160/100 will continue to follow BP and titrate medications (6) Obesity (BMI 30-39.9) Current Visit: Yes Status: Chronic Assessment and Plan: nutrition consultation diet and exercise advised. (7) Tinea corporis Current Visit: Yes Status: Acute Assessment and Plan: ketoconazole 2% cream BID (8) DVT prophylaxis Current Visit: Yes Status: Acute Assessment and Plan: SubQ heparin - Time Spent with Patient Total time spent is greater than 50% in coordination of care (as documented) at patient's floor/unit and/or counseling patient: Internal Medicine: Result - Labs CBC & Chem 7: 11/11/17 06:51 11/11/17 06:51 Labs: Short CBC 11/11/17 Range/Units 06:51 WBC 6.8 (4.3-11.1) K/mcL Hgb 13.4 (12.9-16.9) g/dL Hct 39.8 (37.5-50.1) % Plt Count 265 (140-400) K/mcL Neutrophils # 3.5 (1.6-8.9) K/mcL BMP 11/11/17 06:51 Sodium 134 L Potassium 4.0 Chloride 96 L Carbon Dioxide 31 H BUN 11 Creatinine 0.80 Glucose 159 H Calcium 9.1 - VTE Documentation of Mechanical Device: Intermittent pneumatic compression device Consult Discharge Plan - Plan Referrals: Fausto Tomlinson CNP [Primary Care Provider] - 11/14/17 1:30 pm Jabari Pritchett DPM [Partnered Physician] - Anca Choe CNP [Advanced Practice Nurse] - 11/28/17 9:00 am Maria E Roman CNP [Advanced Practice Nurse] - (Family Physician will need to make referral for endocrinology appointment with this office. Thank you) Prescriptions: cefTRIAXone [Rocephin] 2,000 mg IVPB DAILY 35 Days #35 vial metroNIDAZOLE [Metronidazole] 500 mg PO Q8H 35 Days #105 tablet (1) Diabetic foot ulcer associated with diabetes mellitus due to underlying condition Qualifiers: Diabetic foot ulcer location: midfoot Laterality: right Non-pressure ulcer stage: with other severity Qualified Code(s): E08.621 - Diabetes mellitus due to underlying condition with foot ulcer; L97.418 - Non-pressure chronic ulcer of right heel and midfoot with other specified severity (2) Cellulitis Qualifiers: Site of cellulitis: extremity Site of cellulitis of extremity: lower extremity Laterality: right Qualified Code(s): L03.115 - Cellulitis of right lower limb (4) Diabetes mellitus Qualifiers: Diabetes mellitus type: type 2 Diabetes mellitus terminal carman insulin use: without fdc use Diabetes mellitus complication status: with skin complications Diabetes mellitus complication detail: with foot ulcer Qualified Code(s): E11.621 - Type 2 diabetes mellitus with foot ulcer; L97.509 - Non-pressure chronic ulcer of other part of unspecified foot with unspecified severity (5) Hypertension Qualifiers: Hypertension type: essential hypertension Qualified Code(s): I10 - Essential (primary) hypertension
--- NOTE | 2017-11-11 16:54 | Podiatry Progress Note ---
Date of Encounter: 11/11/17 Time of Encounter: 12:00 - Assessment and Plan (1) Chronic ulcer of right foot with fat layer exposed Current Visit: Yes Status: Acute Diabetic foot ulcer with fat layer exposed without probe to bone with associated cellultis Plan: Assessed today at bedside WBC 6.8 and stable- improvement Intra op culture final citrobacter ID on board and recommends: Start Rocephin 2 grams IV daily. Start flagyl 500mg PO TID. Duration of treatment depends on the clinical picture. Although the pathology is negative for osteomyelitis, imaging was positive for possible early ostia. Given the extent of the infection, we will likely treat for 4-6 weeks. We will see the patient in the office in 2 weeks and base further duration of treatment on how the patient is doing clinically and his inflammatory markers. Monitor renal function of her drug toxicity and dose adjust antibiotics. slight maceration noted to foot due to drainage and dressing not being changed Removed dressing, cleansed and flushed wound with saline- pat dry Repacked with iodoform packing- make sure packing is packed to entire depth of wounds Maxsorb AG placed between toes 4x4 and dry bulk dressing applied Patient will need daily dressing changes at home per [facility]- SW on board Will need to be seen in wound care clinic per 1 week following discharge Limited protective weight bearing Will need post operative shoe to bedside prior to discharge Elevate (2) Diabetic foot ulcer associated with diabetes mellitus due to underlying condition Current Visit: Yes Status: Acute Qualifiers: Diabetic foot ulcer location: midfoot Laterality: right Non-pressure ulcer stage: with other severity Qualified Code(s): E08.621 - Diabetes mellitus due to underlying condition with foot ulcer; L97.418 - Non-pressure chronic ulcer of right heel and midfoot with other specified severity Subjective Interval history: Mr. Cedeno is a 46 year old diabetic male with neuropathy who came in with a right foot wound. OR Debridement was complete per on 11/07/2017. Positive for citrobacter. Patient resting comfortably in bed. Denies any pain. States he feels much better and is ready to go home. WBC 6.8 and afebrile. Patient dressing CDI, states it was not changed yesterday as ordered. Objective - Vital Signs Vital Signs: Vital Signs Temp Pulse Resp BP Pulse Ox 11/11/17 15:48 98.1 F 76 17 151/89 96 11/11/17 10:31 97.8 F 83 14 155/97 95 11/11/17 08:40 94 11/11/17 07:38 99.1 F 86 14 159/97 94 11/11/17 04:10 98.3 F 78 14 164/95 96 11/10/17 19:18 98.6 F 83 16 179/112 97 Intake and Output 11/11/17 11/11/17 11/11/17 07:59 15:59 23:59 Intake Total 100 / 100 1080 / 1080 Output Total 0 / 0 Balance 100 / 100 1080 / 1080 Intake: IV Fluids 100 / 100 120 / 120 Rocephin 2,000 MG In Water for 20 / 20 inj. (sterile) 20 ML @ 600 mls/ hr IVP DAILY [facility] Rx#:[id number] Zosyn 3.375 GM In 0.9 % Sodium 100 / 100 100 / 100 Chloride (Mini-Bag +) 100 ML @ 25 mls/hr IVPB Q8HR [facility] Rx#: [id number] Oral 0 / 0 960 / 960 Output: Urine 0 / 0 Other: Meal Lunch Percent of Meal Consumed 100% # Voids 1 # Bowel Movements 0 Weight 126.5 kg Blood Glucose* 155 244 200 Patient Weight 11/11/17 23:59 Weight 126.5 kg - Exam Exam: Podiatry General Exam: General appearance: alert awake oriented X 3. Calm and pleasant, no acute distress.. Vascular: Pedal pulses +2/4 DP/PT , No evidence of cyanosis, pallor or rubor, Edema graded at 1+/4, Skin Temperature warm, No calf pain with manual compression. capillary refill time is immediate to digits. Neurologic: Sensation intact with moderate touch. Minimal sensation to light touch. . Postop Exam: S/P Sutures intact to incision lines, open areas which were surgically created for drainage are noted to plantar aspect of wound, between toes #3 and #4 and to dorsal aspect of foot- Scant thick yellow drainage noted. Very minimal odor. . Improvement is noted in erythema and edema of foot. There is maceration noted between toes #3 #4 and slight dusky appearance remains to toe #4, monitoring closely. Toes warm, cap refill <3 seconds.. - Lab Result Diagrams: 11/11/17 06:51 09/10/18 06:51 Labs: Abnormal lab results MPV 7.8 fL (9.4-12.4) L 11/11/17 06:51 Reactive Lymphocytes Present (Not Present) A 11/11/17 06:51 ESR 75 mm/hr (0-10) H 11/07/17 15:49 Sodium 134 mEq/L (136-145) L 11/11/17 06:51 Chloride 96 mEq/L (98-107) L 11/11/17 06:51 Carbon Dioxide 31 mEq/L (23-29) H 11/11/17 06:51 Glucose 159 mg/dL (70-105) H 11/11/17 06:51 POC Glucose 244 mg/dL (70-99) H 11/11/17 11:52 Hemoglobin A1c 8.9 % (-5.6) H 11/04/17 04:09 AST 10 Units/L (13-39) L 11/04/17 04:09 C-Reactive Protein 164 mg/L (Less than 10) H 11/07/17 15:49 HDL Cholesterol 37 mg/dL (40-59) L 11/04/17 04:09 25-OH Vitamin D Total 17 ng/mL (30-80) L 11/10/17 13:11 Vancomycin Trough 2 mcg/mL (5-10) L 11/08/17 21:03 - VTE Documentation of Mechanical Device: Intermittent pneumatic compression device Consult Discharge Plan - Plan Referrals: Fausto Tomlinson CNP [Primary Care Provider] - 11/14/17 1:30 pm Jabari Pritchett DPM [Partnered Physician] - Anca Choe CNP [Advanced Practice Nurse] - 11/28/17 9:00 am Maria E Roman CNP [Advanced Practice Nurse] - (Family Physician will need to make referral for endocrinology appointment with this office. Thank you) Prescriptions: cefTRIAXone [Rocephin] 2,000 mg IVPB DAILY 35 Days #35 vial metroNIDAZOLE [Metronidazole] 500 mg PO Q8H 35 Days #105 tablet
[2017-11-12 04:38] LABS: Basophils # 0.1 K/mcL (0.0-0.2); Basophils % 0.8 %; Eosinophils # 0.2 K/mcL (0.0-0.6); Eosinophils % 2.4 %; Hematocrit 39.2 % (37.5-50.1); Hemoglobin 13.4 g/dL (12.9-16.9); Immature Granulocytes % 2.4 % (0-4); Lymphocytes # 1.7 K/mcL (0.6-4.6); Mean Corpuscular HGB Conc 34.2 g/dL (31.6-35.5); Mean Corpuscular Hemoglobin 29.3 pg (28.0-33.3); Mean Corpuscular Volume 85.8 fL (83.0-100.0); Monocytes # 0.9 K/mcL (0.0-1.3); Neutrophils # 4.3 K/mcL (1.6-8.9); Platelet Count 254 K/mcL (140-400); Red Blood Count 4.57 M/mcL (4.19-5.50); Red Cell Distribution Width 12.8 % (11.5-14.5); Segmented Neutrophils % 59.4 %
[2017-11-12 04:55] LABS: BUN/Creatinine Ratio 17 (6-26); Blood Urea Nitrogen 14 mg/dL (6-20); Carbon Dioxide 27 mEq/L (23-29); Chloride 97 mEq/L (98-107); Glucose 241 mg/dL (70-105); Osmolality,Calculated 284 (280-300); Sodium 133 mEq/L (136-145); eGFR For Non-African Americans > 60 (> 60)
[2017-11-12] MEDS: *HR* Heparin 5,000 UNIT/ML VIAL SQ SCH ×2 (06:09→14:00)
[2017-11-12 07:29] VITALS: BP 142/89
[2017-11-12] MEDS: cefTRIAXone 2,000 MG in Water for inj. (sterile) 20 ML 20 ML IVP SCH (08:32)
[2017-11-12] MEDS: Insulin LISPRO 300 UNITS/3 ML VIAL SQ SCH ×2 (08:34→11:28)
[2017-11-12] MEDS: Insulin DETEMIR 100 UNIT/ML X5UNITS SQ SCH (08:34)
[2017-11-12] MEDS: Lisinopril 20 MG TABLET PO SCH (08:35)
[2017-11-12] MEDS: Furosemide 40 MG TABLET PO SCH (08:35)
[2017-11-12] MEDS: amLODIPine 5 MG TABLET PO SCH (08:35)
[2017-11-12] MEDS: metroNIDAZOLE 500 MG TABLET PO SCH (08:35)
[2017-11-12] MEDS: Ketoconazole 2% CRM 15 GM TUBE TP SCH (09:17)
--- NOTE | 2017-11-12 11:42 | Discharge Summary ---
- NOTES TO OUTPATIENT PROVIDER Notes to Outpatient Provider: Patient was admitted for right diabetic foot infection and osteomyelitis and underwent I&D as well as debridement of third metatarsal and proximal phalanx. Culture positive for Citrobacter and S. agalactiae, bonds-sensitive. Although his surgical pathology was negative for osteomyelitis, since his foot MRI was suspicious for early osteomyelitis, he will be discharged on IV Rocephin and Flagyl for at least 2 weeks and follow with ID in 2 weeks for further antibiotics. He will also follow up with podiatry in 1 week. Daily dressing change with home health was set up prior to the discharge. Weekly CBC, BUN/Cr, ESR, CRP for ID. Of note, he had persistently elevated BP during his stay and lisinopril was uptitrated to 20mg QD. Orders not resulted at time of discharge: Pending orders 11/13/17 04:00 Basic Metabolic Panel AM 0400 Complete Blood Count [HEME] AM 0400 11/14/17 04:00 Basic Metabolic Panel AM 0400 Complete Blood Count [HEME] AM 0400 Date of Encounter: 11/12/17 Time of Encounter: 08:50 - Discharge Diagnosis (1) Cellulitis Priority: Secondary Status: Acute Qualifiers: Site of cellulitis: extremity Site of cellulitis of extremity: lower extremity Laterality: right Qualified Code(s): L03.115 - Cellulitis of right lower limb (2) Diabetic foot ulcer associated with diabetes mellitus due to underlying condition Priority: Secondary Status: Acute Qualifiers: Diabetic foot ulcer location: midfoot Laterality: right Non-pressure ulcer stage: with other severity Qualified Code(s): E08.621 - Diabetes mellitus due to underlying condition with foot ulcer; L97.418 - Non-pressure chronic ulcer of right heel and midfoot with other specified severity (3) Sepsis affecting skin Priority: Primary Status: Resolved (4) Diabetes mellitus Priority: Secondary Status: Acute Qualifiers: Diabetes mellitus type: type 2 Diabetes mellitus prison insulin use: without adjunct faculty for medical terminology use Diabetes mellitus complication status: with skin complications Diabetes mellitus complication detail: with foot ulcer Qualified Code(s): E11.621 - Type 2 diabetes mellitus with foot ulcer; L97.509 - Non-pressure chronic ulcer of other part of unspecified foot with unspecified severity (5) Hypertension Priority: Secondary Status: Chronic Qualifiers: Hypertension type: essential hypertension Qualified Code(s): I10 - Essential (primary) hypertension (6) Obesity (BMI 30-39.9) Priority: Secondary Status: Chronic (7) DVT prophylaxis Priority: Secondary Status: Acute (8) Tinea corporis Priority: Secondary Status: Acute Hospital course: Mr. Cedeno is a 46 year old male who was admitted for right diabetic foot infection and osteomyelitis. He underwent I&D as well as debridement of third metatarsal and proximal phalanx on 11/07 uneventfully. Culture positive for Citrobacter and S. agalactiae, bonds-sensitive. Although his surgical pathology was negative for osteomyelitis, since his foot MRI was suspicious for early osteomyelitis, he will be discharged on IV Rocephin and Flagyl for at least 2 weeks and follow with ID in 2 weeks for further antibiotics. Weekly CBC, BUN/Cr , ESR, CRP for ID as well while on abx. He will also follow up with podiatry in 1 week and have daily dressing change with home health which was set up prior to the discharge. Of note, he had persistently elevated BP during his stay and lisinopril was uptitrated to 20mg QD. Discharge discussed with: patient, case management - Time Spent with Patient Total time spent providing and/or coordinating discharge services: Greater than 30 minutes - Discharge Medications Prescriptions: HYDROcodone/Acet 5/325 mg [[place] 5-325 mg] 1 tab PO Q6HR PRN 4 Days #16 tablet PRN Reason: Severe Pain cefTRIAXone [Rocephin] 2,000 mg IVPB DAILY 35 Days #35 vial Lisinopril [Zestril] 20 mg PO DAILY #30 tablet metroNIDAZOLE [Metronidazole] 500 mg PO Q8H 35 Days #105 tablet Home Medications: Amitriptyline [Elavil] 25 mg PO HS 11/03/17 [History] Dulaglutide [Trulicity] 0.75 mg SQ SA 11/03/17 [History] Empagliflozin [Jardiance] 10 mg PO DAILY 11/03/17 [History] Simvastatin [Zocor] 10 mg PO HS 11/03/17 [History] metFORMIN [Glucophage] 1,000 mg PO BIDWM 11/03/17 [History] cefTRIAXone [Rocephin] 2,000 mg IVPB DAILY 35 Days #35 vial 11/11/17 [Rx] metroNIDAZOLE [Metronidazole] 500 mg PO Q8H 35 Days #105 tablet 11/11/17 [Rx] HYDROcodone/Acet 5/325 mg [[place] 5-325 mg] 1 tab PO Q6HR PRN 4 Days #16 tablet 11/12/17 [Rx] Lisinopril [Zestril] 20 mg PO DAILY #30 tablet 11/12/17 [Rx] Allergies/Adverse Reactions: 3 Allergy/AdvReac Type Severity Reaction Status Date / Time No Known Allergies Allergy Verified 11/04/17 14:31 Date of admission: 11/08/17 09:49 Primary care physician: Fausto Tomlinson CNP Consults: 11/11/17 14:28 Consult to Invasive Line Access Team [CONS] Routine Reason for Consult: Picc Line Insertion Line Type: PICC PICC line indications: nursing home Med/Antibiotic 11/11/17 14:58 Consult to Invasive Line Access Team [CONS] Routine Reason for Consult: nursing home IV ATB's Line Type: Midline 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 Bilateral breath sounds are clear without wheezing, crackles, or rhonchi. Cardiovascular: Regular rate and rhythm. s1 and s2 Abdomen: Soft, nondistended. non-tender Musculoskeletal: R foot dressing dry and clean - Patient Status Disposition: Home Health Service Condition: Good - Discharge Instructions Instructions: Cellulitis (DC), Diabetes Mellitus Type 2 in Adults (DC), Diabetic Foot Care (DC), Chronic Hypertension (DC), Sepsis (DC) Follow Up With: Fausto Tomlinson CNP [Primary Care Provider] - 11/14/17 1:30 pm Jabari Pritchett DPM [Partnered Physician] - Anca Choe CNP [Advanced Practice Nurse] - 11/28/17 9:00 am Maria E Roman CNP [Advanced Practice Nurse] - (Family Physician will need to make referral for endocrinology appointment with this office. Thank you) - Diet and Activity Activity: as per physical therapy Diet: diabetic diet - VTE Documentation of Mechanical Device: Intermittent pneumatic compression device
--- NOTE | 2017-11-12 12:43 | Physician Discharge Referral ---
Home Health/Hosp Referral Info Transfer to: Home Health - Diagnosis (1) Cellulitis Priority: Secondary Status: Acute (2) Diabetic foot ulcer associated with diabetes mellitus due to underlying condition Priority: Secondary Status: Acute (3) Sepsis affecting skin Priority: Primary Status: Resolved (4) Diabetes mellitus Priority: Secondary Status: Acute (5) Hypertension Priority: Secondary Status: Chronic (6) Obesity (BMI 30-39.9) Priority: Secondary Status: Chronic (7) DVT prophylaxis Priority: Secondary Status: Acute (8) Tinea corporis Priority: Secondary Status: Acute - Respiratory Orders Smoking Cessation: Smoking cessation has been advised. For more information, call the [place] [employer] Quit Line at 3-664-EDGMNOW. - Dressing/Wound Care Site: R foot Type of Dressing/Treatments w/Frequency: Per podiatry, daily dressing changes with: Repacked with iodoform packing- make sure packing is packed to entire depth of wounds Maxsorb AG placed between toes 4x4 and dry bulk dressing applied - Transfer Medications Prescriptions: HYDROcodone/Acet 5/325 mg [[place] 5-325 mg] 1 tab PO Q6HR PRN 4 Days #16 tablet PRN Reason: Severe Pain cefTRIAXone [Rocephin] 2,000 mg IVPB DAILY 35 Days #35 vial Lisinopril [Zestril] 20 mg PO DAILY #30 tablet metroNIDAZOLE [Metronidazole] 500 mg PO Q8H 35 Days #105 tablet Home Medications: Amitriptyline [Elavil] 25 mg PO HS 11/03/17 [History] Dulaglutide [Trulicity] 0.75 mg SQ SA 11/03/17 [History] Empagliflozin [Jardiance] 10 mg PO DAILY 11/03/17 [History] Simvastatin [Zocor] 10 mg PO HS 11/03/17 [History] metFORMIN [Glucophage] 1,000 mg PO BIDWM 11/03/17 [History] cefTRIAXone [Rocephin] 2,000 mg IVPB DAILY 35 Days #35 vial 11/11/17 [Rx] metroNIDAZOLE [Metronidazole] 500 mg PO Q8H 35 Days #105 tablet 11/11/17 [Rx] HYDROcodone/Acet 5/325 mg [[place] 5-325 mg] 1 tab PO Q6HR PRN 4 Days #16 tablet 11/12/17 [Rx] Lisinopril [Zestril] 20 mg PO DAILY #30 tablet 11/12/17 [Rx] Allergies/Adverse Reactions: 3 Allergy/AdvReac Type Severity Reaction Status Date / Time No Known Allergies Allergy Verified 11/04/17 14:31 Certification: Further, I certify that my clinical findings support that this patient is homebound (i.e. absences from home require considerable and taxing effort and are for medical reasons or bahai services or infrequently or short duration when for other reasons) because: Homebound Reason: Patient requires assistance of a person or device to safely leave home Attestation: My signature below is to certify that this patient is under my care and that I, or nurse practitioner, or a physician's orthodontist assistant working with me, has a face-to -face encounter with this patient.
--- NOTE | 2017-11-12 15:45 | Infectious Disease Progress No ---
Date of Encounter: 11/12/17 Time of Encounter: 11:50 - Assessment and Plan (1) Sepsis affecting skin Status: Resolved The patient had 2 sirs criteria on admission. Likely secondary to right foot osteomyelitis. Improved. White blood cell count has normalized. Tachycardia resolved. Afebrile. Blood cultures obtained 11/03/17 are negative 2 sets. (2) Osteomyelitis of right foot Status: Acute Location: Right foot. Causative organism: Likely Escherichia coli, Citrobacter, and group B strep and anaerobes per previous wound cultures. Likely secondary to diabetic foot ulcer. X-ray and CT scan were negative for osteomyelitis. The patient had progression of symptoms and underwent an MRI that showed early osteomyelitis, but no abscess or necrotizing fasciitis. Podiatry consult. Status post I&D of the right foot with debridement of the third metatarsal and proximal phalanx 11/07/[address] Kline. Operative note reviewed. Intraoperative cultures were obtained and are positive for Citrobacter koseri and GBS. Pathology is negative for OM. CK level normal at 64. Postoperative ESR 75, CRP 164. Continue Rocephin 2 grams IV daily. Continue flagyl 500mg PO TID. Duration of treatment depends on the clinical picture. Although the pathology is negative for osteomyelitis, imaging was positive for possible early ostia. Given the extent of the infection, we will likely treat for 4-6 weeks. We will see the patient in the office in 2 weeks and base further duration of treatment on how the patient is doing clinically and his inflammatory markers. Monitor renal function of her drug toxicity and dose adjust antibiotics. Wound care and activity restrictions per the podiatry team. student services rep to assist with discharge planning. Will need weekly CBC, BUNs/creatinine, ESR, and CRP. Will need weekly midline care per protocol. Follow up with ID 11/28/17 at 0900 Qualifiers: Osteomyelitis type: other acute Qualified Code(s): M86.171 - Other acute osteomyelitis, right ankle and foot (3) Cellulitis Status: Acute Location: Right foot. Causative organism: Likely Citrobacter, group B strep, and Escherichia coli. Likely secondary to diabetic foot ulcer. Clinically worse based on previous skin markings. MRI was negative for necrotizing fasciitis. CK level was normal. Continue antibiotics as above. Podiatry consult to assist with management. Qualifiers: Site of cellulitis: extremity Site of cellulitis of extremity: lower extremity Laterality: right Qualified Code(s): L03.115 - Cellulitis of right lower limb (4) Foot ulcer due to secondary DM Status: Acute Location: Plantar aspect of the right foot. Etiology: Unclear. Patient denies known trauma, but states he often walks around barefoot and has peripheral neuropathy. Podiatry consult and following. Wound care per the podiatry team. (5) Diabetes mellitus Status: Acute Uncontrolled. Hemoglobin A1c 8.9%. Recommend aggressive glucose monitoring and control to promote wound healing and prevent further infection. Management per the primary team. Qualifiers: Diabetes mellitus type: type 2 Diabetes mellitus nursing home insulin use: without nursing home use Diabetes mellitus complication status: with skin complications Diabetes mellitus complication detail: with foot ulcer Qualified Code(s): E11.621 - Type 2 diabetes mellitus with foot ulcer; L97.509 - Non-pressure chronic ulcer of other part of unspecified foot with unspecified severity (6) Hypertension Status: Chronic Qualifiers: Hypertension type: essential hypertension Qualified Code(s): I10 - Essential (primary) hypertension (7) Obesity (BMI 30-39.9) Status: Chronic - Subjective Interval history: Patient seen and examined. No acute events noted overnight. Status post I&D of the right foot with debridement of the third metatarsal and proximal phalanx by Dr. Bess 11/07/17. Patient states overall he feels well. He denies any fevers or chills or rigors. Denies any chest pain, shortness of breath, or cough. Denies any nausea, vomiting, diarrhea, constipation. Reports his last bowel movement was this morning. Denies any abdominal pain, appetite changes, or urinary complaints. Continues to complain of pain in the right foot, but states that overall does feel better. Denies any oral thrush or new skin rashes. Infect Dis PN-Objective Data - Labs CBC & Chem 7: 11/12/17 04:21 11/12/17 04:21 Labs: Laboratory Results - last 24 hr 11/11/17 11/11/17 11/12/17 16:40 20:06 04:21 WBC 7.2 RBC 4.57 Hgb 13.4 Hct 39.2 MCV 85.8 MCH 29.3 MCHC 34.2 RDW 12.8 Plt Count 254 MPV 8.0 L Immature Gran % 2.4 Seg Neutrophils % 59.4 Lymphocytes % 23.0 Monocytes % 12.0 Eosinophils % 2.4 Basophils % 0.8 Neutrophils # 4.3 Lymphocytes # 1.7 Monocytes # 0.9 Eosinophils # 0.2 Basophils # 0.1 Sodium Potassium Chloride Carbon Dioxide BUN Creatinine Est GFR ( Amer) Est GFR (Non-Af Amer) BUN/Creatinine Ratio Glucose POC Glucose 200 H 193 H Calculated Osmolality Calcium 11/12/17 11/12/17 11/12/17 04:21 07:27 11:05 WBC RBC Hgb Hct MCV MCH MCHC RDW Plt Count MPV Immature Gran % Seg Neutrophils % Lymphocytes % Monocytes % Eosinophils % Basophils % Neutrophils # Lymphocytes # Monocytes # Eosinophils # Basophils # Sodium 133 L Potassium 4.0 Chloride 97 L Carbon Dioxide 27 BUN 14 Creatinine 0.82 Est GFR ( Amer) > 60 Est GFR (Non-Af Amer) > 60 BUN/Creatinine Ratio 17 Glucose 241 H POC Glucose 195 H 207 H Calculated Osmolality 284 Calcium 9.0 Exam - Constitutional Vitals: Temp Pulse Resp BP Pulse Ox 98.1 F 85 15 142/89 95 11/12/17 07:21 11/12/17 07:21 11/12/17 07:21 11/12/17 07:21 11/12/17 08:24 General appearance: cooperative, no acute distress, obese - Head Head exam: Present: atraumatic, normal inspection, normocephalic - Eye Eye exam: Present: EOMI, normal appearance, PERRL Pupils: Present: normal accommodation - ENT ENT exam: Present: mucous membranes moist - Neck Neck exam: Present: normal inspection - Respiratory Respiratory exam: Present: CTAB. Absent: rales, respiratory distress, rhonchi, wheezes - Cardiovascular Cardiovascular exam: Present: RRR, +S1, +S2 - GI/Abdominal GI/Abdominal exam: Present: distended (obese), normal bowel sounds, soft. Absent: tenderness - Extremities Exam Extremities exam: Absent: joint swelling, tenderness Additional comments: Right foot dressing C/D/I. - Neurological Exam Neurological exam: Present: alert, oriented X3, no focal deficits - Psychiatric Psychiatric exam: Present: normal affect, normal mood - Skin Skin exam: Present: dry, intact, normal color, warm - Additional findings Additional findings: Midline noted to the LUE with transparent dressing C/D/I. - VTE Documentation of Mechanical Device: Intermittent pneumatic compression device Consult Discharge Plan - Plan Instructions: Cellulitis (DC), Diabetic Foot Care (DC), Diabetes Mellitus Type 2 in Adults (DC), Sepsis (DC), Chronic Hypertension (DC) Referrals: Fausto Tomlinson CNP [Primary Care Provider] - 11/14/17 1:30 pm Jabari Pritchett DPM [Partnered Physician] - 11/21/17 11:00 am (Appointment will be in the [facility]. Thank you) Anca Choe CNP [Advanced Practice Nurse] - 11/28/17 9:00 am Maria E Roman CNP [Advanced Practice Nurse] - (Family Physician will need to make referral for endocrinology appointment with this office. Thank you) Prescriptions: HYDROcodone/Acet 5/325 mg [[place] 5-325 mg] 1 tab PO Q6HR PRN 4 Days #16 tablet PRN Reason: Severe Pain cefTRIAXone [Rocephin] 2,000 mg IVPB DAILY 35 Days #35 vial Lisinopril [Zestril] 20 mg PO DAILY #30 tablet metroNIDAZOLE [Metronidazole] 500 mg PO Q8H 35 Days #105 tablet - Attending Attestation I examined this patient and my medical decision-making was reviewed with the Resident Physician. I agree with the documented findings, disposition and treatment plan as described except to the extent set forth below.
== END 2017-11-12 14:31 | disposition home or self-care (01) | DRG 854 ==
LOC: 3ANU 16:26 → EMEROOARM 16:26 → SUATTDRO 20:38 → 3ANU 21:03 → SUATTDRO 11-08 09:49
PROVIDERS: ADMIT Internal Medicine; ATTEND Internal Medicine